=== PATIENT | female | born 1955 | race Caucasian/White ===

== ENCOUNTER → 2020-05-22 13:26 | Outpatient (CLI) | payer MEDICARE, SELFPAY ==
--- NOTE | ~2020-05-22 | MM_ITS ---
EXAMINATION: MM screening [facility] BI w ravi HISTORY: Screening mammogram TECHNIQUE: Craniocaudal and mediolateral oblique 3-D tomosynthesis images were obtained and synthetic 2-D images were generated. CAD analysis was submitted and interpreted. COMPARISON: 09/18/2018, 06/20/2017, 04/13/2015 BREAST PARENCHYMAL COMPOSITION: The breasts are almost entirely fatty. FINDINGS: There is no evidence of suspicious mass, calcification, or architectural distortion to sugg est malignancy in either breast. There has been no suspicious interval change. IMPRESSION: 1. No mammographic evidence of malignancy. 2. Recommend routine screening mammography in one year. BI-RADS Category 1: Negative Reviewed, dictated and finalized at location A. BOAT
--- NOTE | ~2020-05-22 | DEXA_ITS ---
Bone Density Report Name: Smiley Parsons Age: 64 Sex: Female Ethnicity: White Date of : 1955 Indication: postmenopausal; screening for osteoporosis; Referring Provider: Mert, Ronna Felder Study: Bone densitometry was performed. Exam Date: May 22, 2020 Accession number: [id number] Bone Density: Region BMD T-score Z-score Classification AP Spine (L1-L4) 0.997 -0.5 1.4 Normal Femoral Neck (Left) 0.615 -2.1 -0.5 Osteopenia Total Hip (Left) 0.827 -0.9 0.4 Normal Femoral Neck (Right) 0.608 -2.2 -0.6 Osteopenia Total Hip (Right) 0.777 -1.4 0.0 Osteopenia Total Hip Mean 0.802 -1.2 0.2 Osteopenia World Health Organization criteria for BMD impression classify patients as: Normal (T-score at or above -1.0), Osteopenia (T-score between -1.0 and -2.5), or Osteoporosis (T-score at or below -2.5). 10-year Fracture Risk(1): Major Osteoporotic Fracture 11% Hip Fracture 1.8% Reported Risk Factors: [place] (), Neck BMD=0.608, BMI=36.1 (1) FRAX(R) Version 3.08. Fracture probability calculated for an untreated patient. Fracture probability may be lower if the patient has received treatment. Previous Exams: Region Exam Age BMD T-score BMD Change BMD Change Date g/cm2 vs Baseline vs Previous AP Spine(L1-L4) 05/22/2020 64 0.997 -0.5 -0.225 0.005 06/20/2017 61 0.991 -0.5 -0.231 0.000 04/13/2015 59 0.991 -0.5 -0.231 -0.070* 01/11/2013 57 1.061 0.1 -0.161 -0.017 01/17/2011 55 1.079 0.3 -0.143 -0.013 09/28/2007 51 1.092 0.4 -0.130 -0.130 02/27/2004 48 1.222 1.6 Total Hip(Left) 05/22/2020 64 0.827 -0.9 -0.169 0.012 06/20/2017 61 0.814 -1.0 -0.182 0.016 04/13/2015 59 0.798 -1.2 -0.198 -0.047* 01/11/2013 57 0.845 -0.8 -0.151 -0.040* 01/17/2011 55 0.885 -0.5 -0.111 -0.004 09/28/2007 51 0.889 -0.4 -0.107 -0.107 02/27/2004 48 0.996 0.4 Total Hip(Right) 05/22/2020 64 0.777 -1.4 -0.214 -0.037 06/20/2017 61 0.814 -1.0 -0.177 -0.015 04/13/2015 59 0.829 -0.9 -0.161 -0.056* 01/11/2013 57 0.886 -0.5 -0.105 -0.013 01/17/2011 55 0.899 -0.4 -0.092 -0.025 09/28/2007 51 0.924 -0.1 -0.067 -0.067 02/27/2004 48 0.991 0.4 *Denotes significance at
== END ==
PROVIDERS: PCP Family Medicine Sports Medicine; Visit Provider Nurse Practitioner Obstetrics & Gynecology
DX: Z12.31 Encounter for screening mammogram for malignant neoplasm of breast (principal); Z78.0 Asymptomatic menopausal state; M85.852 Other specified disorders of bone density and structure, left thigh; M85.851 Other specified disorders of bone density and structure, right thigh
CPT/HCPCS: 77063; 77067; 77080

== ENCOUNTER 2021-06-29 09:19 | Emergency (ER) | payer MEDICARE, SELFPAY ==
--- NOTE | ~2021-06-29 | CT_ITS ---
EXAMINATION: CT abdomen pelvis wo con EXAM DATE: 06/29/2021 10:27 INDICATION: Left flank pain, history of kidney stones. TECHNIQUE: Spiral CT of the abdomen and pelvis was performed without contrast. Axial, coronal and sag ittal images were reviewed. The dose-length product (DLP) for this examination was 1206.06 mGy-cm. The exposure was tailored according to patient size (auto mA exposure control), and iterative reconst ruction (ASIR) was used as additional dose reduction technique. Comparison is made to prior examinati on from 02/04/2018. FINDINGS: There is punctate, 2 mm stone in the distal aspect left ureter indicated on axial image 161 , about 3 cm from the ureterovesicular junction. Minimal left hydronephrosis. There are bilateral hyp erdense renal lesions most likely hemorrhagic cysts. Several other left calyceal stones, measuring up to 5 mm. The uterus is unremarkable. The bladder is unremarkable. The liver, spleen, adrenal gla nds and pancreas are unremarkable. There are cholecystectomy clips. There is no retroperitoneal or pelvic lymphadenopathy. There is mild scattered arteriosclerotic disease. The appendix is normal. There is mild to moderate sigmoid diverticulosis. There may be mild adjacent fat stranding, uncomplicated diverticulitis. The stomach and small bowel are unremarkable. There is expected amount of colonic stool. No free intraperitoneal gas. The heart is normal in size. Ther e are no pericardial or pleural effusions. The lung bases are unremarkable. There are no osteoblast ic or osteolytic lesions identified. IMPRESSION: 1. Punctate, 2 mm distal left ureteral stone. Minimal hydronephrosis. 2. Mild to moderate sigmoid diverticulosis with possible mild uncomplicated acute diverticulitis. 3. Left nephrolithiasis. Reviewed, dictated and finalized at location A. S ACCOUNT REPRESENTATIVE IMPRESSION: 1. Punctate, 2 mm distal left ureteral stone. Minimal hydronephrosis. 2. Mild to moderate sigmoid diverticulosis with possible mild uncomplicated ac josé luis diverticulitis. 3. Left nephrolithiasis.
[2021-06-29 09:24] VITALS: BP 157/91; PULSE 82; RESP 14; TEMP 36.5; O2SAT 97
[2021-06-29 10:01] LABS: Basophils Percent Auto 0.6 % (0.2-1.2); Eosinophils Absolute Auto 0.1 K/mm3 (0-0.3); Eosinophils Percent Auto 1.6 % (0-4.4); Hematocrit 42.2 % (37.0-47.0); Hemoglobin 13.5 g/dL (12.0-15.0); Immature Granulocyte Absolute 0.01 K/mm3 (0.00-0.031); Immature Granulocyte Percent A 0.2 % (0-0.5); Lymphocytes Absolute Auto 1.39 K/mm3 (0.9-3.2); Mean Corpuscular Hemoglobin 28.4 pg (26-34); Mean Corpuscular Volume 88.7 fl (80-100); Mean Platelet Volume 9.4 fl (7.4-10.4); Monocytes Absolute Auto 0.3 K/mm3 (0.1-0.6); Monocytes Percent Auto 6.2 % (2.6-8.5); Neutrophils Absolute Auto 3.3 K/mm3 (1.3-6.7); Neutrophils Percent Auto 64.4 % (45.5-73.1); Platelet Count Result 302 k/mm3 (150-375); Red Blood Count 4.76 M/mm3 (4.2-5.4); White Blood Count 5.2 K/mm3 (4.5-10.0)
[2021-06-29 10:10] LABS: Add Urine Microscopic? YES; Appearance Urine Cloudy (Clear); Bilirubin Urine Negative (Negative); Blood Urine 3+ (Negative); Color Urine Yellow (Yellow); Glucose Urine UA Negative (Negative); Ketones Urine Negative (Negative); Leukocyte Esterase Ur Negative LEU/UL (Negative); Mucus Urine Few /lpf; Nitrate Urine Negative (Negative); Protein Urine 1+ mg/dL (Negative); RBC Urine >75 /hpf (0-2); Specific Grav Ur 1.019 (1.001-1.035); Squamous Epithelial Cell Urine Few /hpf (Few); Urobilinogen Urine Negative mg/dL (<2.0)
[2021-06-29 10:13] LABS: Alanine Aminotransferase 38 U/L (4-35); Albumin Level 4.2 g/dL (3.5-5.1); Alkaline Phosphatase 57 U/L (38-126); Anion Gap 6 mmol/L (8-16); Aspartate Amino Transferase 38 U/L (14-36); Bilirubin,Total 0.4 mg/dL (0.2-1.3); Blood Urea Nitrogen 20 mg/dL (7-17); Calcium 9.8 mg/dL (8.4-10.2); Carbon Dioxide 27 mmol/L (22-30); Chloride 103 mmol/L (98-107); Estimated CRCL calculation 56 ml/min; Estimated Glomerular Filt Rate > 60; Glucose 151 mg/dL (65-110); Potassium 3.9 mmol/L (3.4-5.0); Sodium 136 mmol/L (137-145)
--- NOTE | 2021-06-29 10:13 | ED.ABDPAIN ---
HPI - Abdominal Pain General Chief Complaint: Back Pain/Injury Stated Complaint: Kidney stone Time Seen by Provider: 06/29/21 10:13 Source: patient Mode of arrival: ambulatory Limitations: no limitations History of Present Illness HPI narrative: Patient is a 65-year-old female complaining of left flank pain, 9 out of 10, sharp, radiating to groin, accompanied by nausea and dysuria that started today. Patient states that she has a history of kidney stones. Patient denies any chest pain, shortness of breath, vomiting, diarrhea, fever or chills. Related Data Home Medications Medication Instructions Recorded Confirmed fenofibrate mg 06/29/21 lisinopril-hydrochlorothiazide tablet 06/29/21 omeprazole 06/29/21 valacyclovir 06/29/21 Allergies Allergy/AdvReac Type Severity Reaction Status Date / Time telithromycin Allergy Unknown Verified 03/30/17 14:07 Review of Systems Review of Systems: All systems reviewed & are unremarkable except as noted in HPI and below Constitutional: Constitutional: Denies body ache(s), Denies chills, Denies excessive sweating, Denies fatigue, Denies fever(s), Denies headache(s), Denies lethargy, Denies malaise, Denies weakness and Denies weight loss Eyes: Eyes: Denies blurry vision, Denies change in vision and Denies loss of vision ENT: Denies dizziness, Denies ear discharge, Denies headache(s), Denies lip swelling, Denies epistaxis, Denies nasal congestion, Denies neck pain, Denies throat swelling and Denies tongue swelling Cardiovascular: Cardiovascular: Denies chest pain, Denies chest pain at rest, Denies chest pain with activity, Denies diaphoresis, Denies rapid heart rate, Denies edema, Denies irregular heart rhythm, Denies lightheadedness, Denies palpitations, Denies dyspnea and Denies dyspnea on exertion Respiratory: Respiratory: Denies chest congestion, Denies cough, Denies hemoptysis, Denies dyspnea and Denies dyspnea on exertion Gastrointestinal: Gastrointestinal: Denies abdominal pain, Denies melena, Denies hematochezia, Denies diarrhea, Denies vomiting and Denies hematemesis Musculoskeletal: Musculoskeletal: Denies abnormal gait, Denies deformity, Denies joint swelling, Denies limited range of motion, Denies neck pain and Denies numbness Neurologic: Denies Abnormal speech present, Denies abnormal gait, Denies confusion, Denies dizziness, Denies headache(s), Denies focal weakness, Denies loss of vision, Denies numbness, Denies Other visual disturbances, Denies Sensory deficit (Neuro) and Denies weakness Psychiatric: Psychiatric: Denies confusion, Denies depression, Denies auditory hallucinations, Denies homicidal ideation and Denies suicidal ideation Endocrine: Endocrine: Denies cold intolerance, Denies excessive sweating, Denies fatigue, Denies heat intolerance and Denies palpitations Hematologic/Lymphatic: Hematologic/Lymphatic: Denies easy bleeding and Denies easy bruising Allergic/Immunologic: Allergic/Immunologic: Denies lip swelling, Denies throat swelling and Denies tongue swelling [facility] Family History Family History (Updated 03/30/17 @ 14:08 by DOCTOR UNKNOWN) Mother Carcinoma of colon Father Family history of congestive heart failure Other Hypertension Social History Social History Smoking status: Never smoker Alcohol intake: never Comments Past medical history: Hypertension, hyperlipidemia, kidney stones Social history: Non-smoker no EtOH or drug use Exam Const: General: cooperative, healthy appearing, comfortable, no acute distress, well developed, alert and awake; No confusion Orientation/consciousness: oriented to person, oriented to place, oriented to time, patient oriented x3 and No confusion Limitations: no limitations HENMT: Head: normal to inspection, normocephalic and atraumatic Ears: hearing grossly normal bilaterally, TM normal on the right and TM normal on the left General nose exam: Normal external nose present, Normal nares prese
[2021-06-29 10:46] LABS: Lipase 263 U/L (23-300)
[2021-06-29] MEDS: SODIUM CHLORIDE 0.9% IV 1,000 ML 999 ML IV CONT (10:47)
[2021-06-29] MEDS: TAMSULOSIN HCL 0.4 MG CAPSULE PO (13:07)
[2021-06-29 13:14] VITALS: BP 138/92; PULSE 70; RESP 18; O2SAT 96
== END 2021-06-29 13:21 | disposition home or self-care (01) ==
PROVIDERS: Emergency Medicine; Emergency Provider Emergency Medicine; PCP Family Medicine Sports Medicine
DX: N13.9 Obstructive and reflux uropathy, unspecified (principal); K57.92 Diverticulitis of intestine, part unspecified, without perforation or abscess without bleeding; I10 Essential (primary) hypertension; E78.5 Hyperlipidemia, unspecified; Z87.442 Personal history of urinary calculi
CPT/HCPCS: 36415; 74176; 80053; 81001; 83690; 85025; 96360; 99284; A9270; J7030

== ENCOUNTER 2022-07-09 17:01 | Inpatient (IN) | payer MEDICARE, SELFPAY ==
--- NOTE | ~2022-07-09 | CT_ITS ---
EXAMINATION: CT guide absc cath placement DATE: 07/11/2022 13:02 INDICATION: Perisigmoid abscess. TECHNIQUE: The procedure including the risks, benefits, and alternatives was discussed with the patie nt. Risks discussed included bleeding and infection. The patient understood the risks and benefits an d agreed to proceed. The skin overlying the buttocks was prepped and draped in usual sterile fashion. Anesthetic was administered with 1% lidocaine subcutaneously. Moderate sedation was achieved with 1 mg Versed IV and 50 mcg fentanyl IV. An 18 gauge trochar needle was inserted into the perisigmoid ab scess with CT guidance. The needle was exchanged over a wire for 6 [place]an, 8 [place]an, and 9 [place] dil ators and then for an 8.5 [place] pigtail catheter. The catheter was stitched to the skin, and a steri le dressing was applied. The mA was adjusted according to patient size. Iterative reconstruction tech nique was employed. The dose-length product was 188.27 mGy-cm. There were no immediate complications. FINDINGS: CT images demonstrate the catheter within the perisigmoid abscess. 10 mL fluid was aspirate d for testing. IMPRESSION: 1. Successful CT-guided perisigmoid abscess drainage. 2. 10 mL opaque, cannon fluid was sent for aerobic and anaerobic cultures. Reviewed, dictated and finalized at location A. LE LOOM SETTER
--- NOTE | ~2022-07-09 | CT_ITS ---
EXAMINATION: CT abdomen pelvis w con DATE: 07/09/2022 18:38 INDICATION: Left sided abd pain, leukocytosis TECHNIQUE: Computed tomography (CT) of the abdomen and pelvis was performed with 100 mL Omnipaque-350 intravenous contrast. Automated exposure control and iterative reconstruction technique were employe d. The dose-length product was 1161.33 mGy-cm. COMPARISON: 06/29/2021. FINDINGS: Lower thorax: Bilateral dependent atelectasis/scar. Liver: Diffuse fatty infiltration. Biliary/Gallbladder: Gallbladder is absent. No bile duct dilation. Pancreas: No mass or duct dilation. Spleen: Normal. Adrenals:No mass. Kidneys: Hemorrhagic left midpole cyst. Simple left upper and lower pole cysts. Multiple bilateral hy podensities, too small to characterize but most likely represent cysts. Multiple left nonobstructing renal calculi. Moderate bilateral perinephric stranding. GI tract: Mild distal esophageal and gastric wall edema. No small or large bowel dilation. Normal shine endix. Short segment wall thickening in the distal sigmoid, with adjacent inflammatory stranding and a 5.9 x 6.6 x 5.1 cm gas and fluid collection in the pouch of Dionicio, with early rim enhancement. Mesentery/Peritoneum: No mass or free air. Retroperitoneum: No mass. Pelvis: Pelvic organs are within normal limits. Soft Tissues: Soft tissues and body wall unremarkable. Bones: No acute osseous finding. IMPRESSION: Complicated sigmoid diverticulitis with a 6.6 cm pericolonic contained perforation/early abscess in t he deep pelvis Reviewed, dictated and finalized at location K. USION SUPERVISOR IMPRESSION: Complicated sigmoid diverticulitis with a 6.6 cm pericolonic contained perforat ion/early abscess in the deep pelvis
[2022-07-09 17:03] VITALS: BP 154/85; PULSE 121; RESP 17; TEMP 37.2; O2SAT 96
[2022-07-09 17:24] LABS: Basophils Percent Auto 0.2 % (0.2-1.2); Hematocrit 43.6 % (37.0-47.0); Hemoglobin 14.4 g/dL (12.0-15.0); Immature Granulocyte Percent A 0.6 % (0-0.5); Lymphocytes Percent Auto 7.7 % (18.3-44.2); Mean Corpuscular Volume 84.8 fl (80-100); Mean Platelet Volume 9.5 fl (7.4-10.4); Monocytes Absolute Auto 0.6 K/mm3 (0.1-0.6); Monocytes Percent Auto 3.6 % (2.6-8.5); Neutrophils Absolute Auto 14.9 K/mm3 (1.3-6.7); Neutrophils Percent Auto 87.9 % (45.5-73.1); Platelet Count Result 348 k/mm3 (150-375); Red Blood Count 5.14 M/mm3 (4.2-5.4); Red Cell Distribution Width 14.2 % (11.5-14.5); White Blood Count 16.9 K/mm3 (4.5-10.0)
[2022-07-09 17:38] LABS: Alanine Aminotransferase 35 U/L (6-35); Albumin Level 4.3 g/dL (3.5-5.1); Alkaline Phosphatase 53 U/L (38-126); Anion Gap 7 mmol/L (8-16); Aspartate Amino Transferase 31 U/L (14-36); Bilirubin,Total 1.2 mg/dL (0.2-1.3); Blood Urea Nitrogen 13 mg/dL (7-17); Calcium 9.4 mg/dL (8.4-10.2); Carbon Dioxide 26 mmol/L (22-30); Chloride 103 mmol/L (98-107); Estimated CRCL calculation 64 ml/min; Estimated Glomerular Filt Rate > 60; Glucose 155 mg/dL (65-110); Lipase 75 U/L (23-300); Potassium 3.7 mmol/L (3.4-5.0); Sodium 136 mmol/L (137-145)
[2022-07-09 18:06] LABS: Add Urine Microscopic? YES; Appearance Urine Clear (Clear); Bilirubin Urine 1+ (Negative); Blood Urine Negative (Negative); Color Urine Yellow (Yellow); Glucose Urine UA Negative (Negative); Ketones Urine Negative (Negative); Leukocyte Esterase Ur Negative LEU/UL (Negative); Nitrate Urine Negative (Negative); Protein Urine Negative (Negative); Specific Grav Ur 1.025 (1.001-1.035); Urobilinogen Urine 0.2 mg/dL (<2.0)
[2022-07-09 18:14] LABS: Mucus Urine Rare /lpf; RBC Urine 0-2 /hpf (0-2); Squamous Epithelial Cell Urine Occasional /hpf (Few); WBC Urine 0-3 /hpf
--- NOTE | 2022-07-09 19:19 | ED.ABDPAIN ---
HPI - Abdominal Pain General Chief Complaint: Abdominal Pain Stated Complaint: ABD PAIN Time Seen by Provider: 07/09/22 18:20 History of Present Illness HPI narrative: 66-year-old female with a hx of diverticulitis and HTN presents to the emergency room for gradual onset of lower abdominal pain. Patient states on Monday she was seen at her PCPs office for evaluation of LLQ pain. Was given x2 ABX by her PCP for suspected diverticulitis. Began experiencing worsening RLQ/LLQ abdominal pain associated with nausea and vomiting yesterday. Reports discontinuing the antibiotics yesterday when she began vomiting. Related Data Home Medications Medication Instructions Recorded Confirmed fenofibrate 160 mg tablet mg 06/29/21 lisinopril 20 tablet 06/29/21 mg-hydrochlorothiazide 12.5 mg tablet omeprazole 40 mg capsule,delayed 06/29/21 release valacyclovir 1 gram tablet 06/29/21 Allergies Allergy/AdvReac Type Severity Reaction Status Date / Time telithromycin Allergy Unknown Unknown Verified 07/09/22 17:02 Review of Systems Review of Systems: CONSTITUTIONAL: Denies fever, chills, or sweats. EYES: Denies visual changes, redness, or discharge. ENT: Denies rhinorrhea, congestion, sore throat, or otalgia. CARDIOVASCULAR: Denies chest pain, palpitations, or edema. RESPIRATORY: Denies cough or dyspnea. GASTROINTESTINAL: Reports lower abdominal pain, nausea, vomiting GENITOURINARY: Denies dysuria or hematuria. SKIN: Denies rash or itching. MUSCULOSKELETAL: Denies back pain, joint pain, or myalgia. NEUROLOGIC: Denies headache, numbness, dizziness, or weakness. PSYCHIATRIC: Denies anxiety or depression. PMFSH Family History Family History Mother Carcinoma of colon Father Family history of congestive heart failure Other Hypertension Social History Social History Smoking status: Never smoker Alcohol intake: never Exam Narrative: GENERAL: Ill-appearing, well-nourished, no physical limitations, and uncomfortable HEAD: Normocephalic, atraumatic. EYES: Conjunctivae normal, PERRLA and EOMI. CHEST: Clear to auscultation. No respiratory distress. No wheezes rales or rhonchi. HEART: Regular rate and rhythm. No murmur heard. Normal peripheral pulses. ABDOMEN: Soft, lower abdominal tenderness, nondistended, normal active bowel sounds. BACK: No CVA tenderness EXTREMITIES: Normal range of motion. No edema. No clubbing or cyanosis SKIN: Warm, dry, no rash. No noted wounds NEURO: No focal deficits. Alert and oriented x3. MAEW. CN's II-XI intact bilaterally, normal gait PSYCH: Cooperative. Normal mood and affect. Course Vital Signs Vital signs: Vital Signs Temperature 37.2 C 07/09/22 17:03 Pulse Rate 121 H 07/09/22 17:03 Respiratory Rate 17 07/09/22 17:03 Blood Pressure 154/85 H 07/09/22 17:03 Pulse Oximetry 96 07/09/22 17:03 Temperature 36.6 C 07/09/22 21:22 Pulse Rate 89 07/09/22 21:22 Respiratory Rate 20 07/09/22 21:22 Blood Pressure 128/69 07/09/22 21:22 Pulse Oximetry 97 07/09/22 21:22 MDM - Abdominal Pain Lab Data 07/09/22 17:10 07/09/22 17:10 Labs: Lab Results 07/09/22 07/09/22 07/09/22 Range/Units 17:10 17:10 17:58 WBC 16.9 H (4.5-10.0) K/mm3 RBC 5.14 (4.2-5.4) M/mm3 Hgb 14.4 (12.0-15.0) g/dL Hct 43.6 (37.0-47.0) % MCV 84.8 (80-100) fl MCH 28.0 (26-34) pg MCHC 33.0 (32-36) g/dl RDW 14.2 (11.5-14.5) % Plt Count 348 (150-375) k/mm3 MPV 9.5 (7.4-10.4) fl Immature Gran % (Auto) 0.6 H (0-0.5) % Neut % (Auto) 87.9 H (45.5-73.1) % Lymph % (Auto) 7.7 L (18.3-44.2) % Yates % (Auto) 3.6 (2.6-8.5) % Eos % (Auto) 0.0 (0-4.4) % Baso % (Auto) 0.2 (0.2-1.2) % Lymph # (Auto) 1.30 (0.9-3.2) K/mm3 Yates # (Auto) 0.6 (0.1-0.6) K/mm3 Eos
[2022-07-09] MEDS: ONDANSETRON INJ 4 MG/2 ML VIAL IV PUSH (19:21)
[2022-07-09] MEDS: SODIUM CHLORIDE 0.9% IV 1,000 ML 999 ML IV CONT (19:22)
[2022-07-09 20:21] VITALS: PULSE 88; RESP 14; O2SAT 94
[2022-07-09 20:31] LABS: Influenza A QL RT-PCR Negative (Negative); Influenza B QL RT-PCR Negative (Negative); RSV RNA, RT-PCR Negative (Negative); SARS-CoV-2 RNA PCR Negative
[2022-07-09 20:50] VITALS: BP 120/66
[2022-07-09] MEDS: SODIUM CHLORIDE 0.9% IV 1,000 ML 125 ML IV CONT (21:15)
--- NOTE | 2022-07-09 21:19 | ADMGEN ---
This patient, Smiley Parsons, was admitted to Medical Room 249-01. Patient/family oriented to hospital policies and general routines including ID bracelet, bed and alarms, visiting hours, pain management, procedures, bathroom and other care routines, personal items, smoking policy, room service/diet, and visiting hours. Information on how to activate the Rapid Response Team has been discussed. Patient/Family are encouraged to report perceived risks to care and to ask questions if they do not understand what they are told or what they should do.
[2022-07-09 21:22] VITALS: BP 128/69; PULSE 89; RESP 20; TEMP 36.6; O2SAT 97; BMI 36.3
--- NOTE | 2022-07-09 21:49 | PM.IMHP ---
H&P: HPI History of Present Illness Date/Time: 07/09/22 21:49 Chief Complaint: Abdominal pain Narrative: 66-year-old female with past medical history of GERD, hypertriglyceridemia, essential hypertension and diverticulosis who presented to the ER due to abdominal pain. Patient reported that she had left lower abdominal pain that started on the 28 of June. The pain was similar to her prior episodes of diverticulitis. She has had 1 prior episode of diverticulitis 06/2021. She went to her primary care physician's office on Monday (the ) and received prescriptions for Cipro and Flagyl. She reported that the pain started to radiate from the left lower quadrant to the right lower quadrant and then was involving the entire abdomen. The pain acutely worsened on Monday. It was accompanied by cold chills and loose stools. She denies any hematochezia or melena. She has had no appetite for 3 days. She was unable to take her antibiotics yesterday due to her nausea vomiting. She denies any dysuria or hematuria. She denies any hematochezia or melena. Review of Systems Review of Systems: 12 systems were reviewed with pertinent positives and negatives per HPI. Except as documented in the HPI, all other systems were reviewed and are negative. [facility] Past Medical History Medical History (Updated 07/09/22 @ 22:06 by Micaela Teague DO) Claustrophobia Diverticulitis 2022 Essential hypertension GERD (gastroesophageal reflux disease) Hypertriglyceridemia Obesity (BMI 30-39.9) Surgical History Surgical History (Updated 07/09/22 @ 22:05 by Micaela Teague DO) History of Achilles tendon repair History of laparoscopic cholecystectomy (04/2017) Status post cystoscopy with ureteral stent placement Left 08/2013, right 01/2018; Dr. Gregorio Family History Family History Mother Carcinoma of colon With metastases to the brain Father CHF (congestive heart failure) Dementia Sibling Hypothyroidism Other Hypertension Social History Social History (Updated 07/10/22 @ 08:56 by Micaela Teague DO) Social History: Patient was for 45 years but has been since 2019. Her of leukemia. She is a lifelong nonsmoker intense not drink any significant amount of alcohol. 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 She has 2 daughters who she does admit as her surrogate decision makers. Code status: Full code Smoking status: Never smoker Alcohol intake: never Substance use: never Lack of Transportation: No Lack of Food: Never True Current Housing: I Have Housing Concerned About Future Housing: No Difficulty Paying Gas/Electric Bills: No Difficulty Paying for Meds: No Currently Unemployed: No Education: Associate Degree Difficulty w/ Childcare or Family Care: No Spiritual care concerns: No Meds Home Medications and Allergies Home Medications Medication Instructions Recorded Confirmed Type fenofibrate 160 mg tablet 160 mg PO DAILY 06/29/21 07/09/22 History lisinopril 20 1 tablet PO DAILY 06/29/21 07/09/22 History mg-hydrochlorothiazide 12.5 mg tablet omeprazole 40 mg capsule,delayed 40 mg PO DAILY 06/29/21 07/09/22 History release ciprofloxacin HCl 500 mg tablet 500 mg PO DAILY 07/09/22 07/09/22 History metronidazole 500 mg tablet 500 mg PO DAILY 07/09/22 07/09/22 History Allergies Allergy/AdvReac Type Severity Reaction Status Date / Time telithromycin Allergy Unknown Unknown Verified 07/09/22 17:02 Vital Signs Vital Signs - 24 hr 07/09/22 17:03 07/09/22 20:21 07/09/22 20:50 Temperature 99 F Pulse Rate 121 H 88 Respiratory Rate 17 14 Blood Pressure 154/85 H 120/66 Pulse Oximetry 96 94 Oxygen Delivery 07/09/22 21:22 07/09/22 21:45 Temperature 97.9 F Pulse Rate 89 Respiratory Rate 20 Blood Pressure 128/69 Pulse Oximetry 97 Oxygen Delivery Room Air
[2022-07-09 23:40] VITALS: BP 119/66; PULSE 87; RESP 16; TEMP 36.6; O2SAT 94
--- NOTE | 2022-07-10 00:06 | PC.NURSE ---
SPOKE TO DR HARDIN PER DR VILLAFUERTE REQUEST TO UPDATE HIM ON PT CONDITION. HE SAID HE WOULD BE IN EARLY TO ASSESS PT. PT LOOKS INCREASINGLY ILL, DUSKY, DIAPHORETIC, EXPERIENCING REBOUND TENDERNESS, INVOLUNTARY GUARDING, AND DISTENDED. PT BOWEL SOUNDS ARE STILL PRESENT. PT REFUSING MORPHINE BUT CONTINUES TO BE IN PAIN. GAVE ZOFRAN FOR NAUSEA.
[2022-07-10] MEDS: ONDANSETRON INJ 4 MG/2 ML VIAL IV PUSH ×4 (03:32→15:54)
[2022-07-10 04:00] VITALS: BP 108/56; PULSE 82; RESP 16; TEMP 36.5; O2SAT 92
[2022-07-10 05:32] LABS: Hematocrit 37.9 % (37.0-47.0); Hemoglobin 12.1 g/dL (12.0-15.0); Mean Corpuscular HGB Conc 31.9 g/dl (32-36); Mean Corpuscular Hemoglobin 27.8 pg (26-34); Mean Corpuscular Volume 86.9 fl (80-100); Mean Platelet Volume 9.4 fl (7.4-10.4); Platelet Count Result 256 k/mm3 (150-375); Red Blood Count 4.36 M/mm3 (4.2-5.4); Red Cell Distribution Width 14.2 % (11.5-14.5); White Blood Count 13.1 K/mm3 (4.5-10.0)
[2022-07-10 05:46] LABS: Anion Gap 6 mmol/L (8-16); Blood Urea Nitrogen 14 mg/dL (7-17); Calcium 8.4 mg/dL (8.4-10.2); Carbon Dioxide 25 mmol/L (22-30); Chloride 106 mmol/L (98-107); Estimated CRCL calculation 59 ml/min; Estimated Glomerular Filt Rate > 60; Glucose 123 mg/dL (65-110); Potassium 3.5 mmol/L (3.4-5.0); Sodium 137 mmol/L (137-145)
[2022-07-10] MEDS: SODIUM CHLORIDE 0.9% IV 1,000 ML 125 ML IV CONT ×3 (06:06→22:31)
[2022-07-10 10:22] VITALS: BP 125/70; PULSE 98; RESP 18; TEMP 37; O2SAT 95
--- NOTE | 2022-07-10 10:41 | PM.CNGS ---
Assessment and Plan Assessment and plan (1) Diverticulitis of large intestine with perforation and abscess: Code(s): K57.20 - Diverticulitis of large intestine with perforation and abscess without bleeding Status: Acute Assessment and Plan: I have reviewed the CT and discussed the findings with the patient. She has evidence of complicated diverticulitis with a 6.6 cm abscess in the deep pelvis. If possible, this would be best treated with percutaneous drainage of the abscess to allow for source control and prevent requiring emergent surgery with ostomy placement. Currently her heart rate is normal and her white blood count is coming down which I discussed with patient that these are good signs that we can continue current treatment and plan for percutaneous drainage when Interventional Radiology is available. I discussed that if she begins showing worsening signs uncontrolled pain, tachycardia, hypotension, or worsening white blood count, will have to consider proceeding with emergent surgical intervention. Will continue Zosyn and NPO except ice chips at this time. After drain placement patient could possibly have liquids if she is continuing to show signs of improvement. (2) Sepsis: Code(s): A41.9 - Sepsis, unspecified organism Status: Acute Assessment and Plan: Elevated white blood count and tachycardia on presentation. White blood count already coming down and no more tachycardia since she was admitted. Patient also remains afebrile. (3) Essential hypertension: Code(s): I10 - Essential (primary) hypertension Status: Acute History of Present Illness Consult details Consult date: 07/10/22 Reason for consult: other (Perforated sigmoid diverticulitis) Requesting physician: Shahram Becker APRN Narrative: This is a 66-year-old woman who I am asked to see for perforated sigmoid diverticulitis with abscess. The patient presented to the emergency department last night complaining of generalized abdominal pain with nausea and vomiting. She has been experiencing pain and not feeling well for about 2 weeks. Her pain was mostly in the left lower quadrant at and she did have a fever 1 week ago. She saw her PCP on Monday and was placed on Cipro and Flagyl. Over the next several days she continued to have worsening pain and was also having some loose stool. She then began experiencing nausea and vomiting on Monday night. Her pain was severe yesterday therefore she came to the emergency department. CT abdomen and pelvis showed perforated sigmoid diverticulitis with a 6.6 cm abscess the deep pelvis. There were no other signs of free air throughout the remainder of the abdomen. Her white blood count was 16.9 and she was tachycardic on presentation to the emergency department. Since being admitted her pain is about the same but is being controlled with IV Tylenol alone. Her white blood count did come down to 13.1 and she has not been tachycardic since she initially presented in the emergency department. The patient did have 1 episode of uncomplicated diverticulitis about 1 year ago and was treated with oral antibiotics as an outpatient. She had a Cologuard test about 2 years ago which was normal. She denies any dysuria or pneumaturia. Review of Systems Review of Systems: All systems reviewed & are unremarkable except as noted in HPI and below Constitutional: Constitutional: Reports fever(s) (One week ago, none since) Eyes: Eyes: Denies change in vision ENT: Denies hearing loss, Denies neck pain and Denies sore throat Cardiovascular: Cardiovascular: Denies chest pain and Denies dyspnea Respiratory: Respiratory: Denies cough, Denies dyspnea and Denies wheezing Gastrointestinal: Gastrointestinal: Reports as per HPI Genitourinary: Genitourinary: Denies hematuria and Denies dysuria Musculoskeletal: Musculoskeletal: Denies arthralgias, Denies joint swelling and Denies neck pain Allergic/Immun
[2022-07-10] MEDS: MORPHINE SULFATE (*CRX) 4 MG/ML INJ 2 MG IV PUSH (11:13)
--- NOTE | 2022-07-10 13:31 | PM.IMPN ---
Progress Note: A&P Assessment and Plan (1) Diverticulitis of intestine with perforation and abscess: Qualifiers: Diverticulitis bleeding: without bleeding Diverticulitis site: large intestine Qualified Code(s): K57.20 - Diverticulitis of large intestine with perforation and abscess without bleeding Code(s): K57.80 - Diverticulitis of intestine, part unspecified, with perforation and abscess without bleeding Status: Deleted Assessment and Plan: Patient has diverticulitis with perforation and abscess measuring greater than 6 cm. The patient has been placed on empiric antibiotic therapy with Zosyn. Appreciate general surgery consultation. Percutaneous drainage has been recommended an IR is available to complete. Continue NPO diet at this time. Gentle IV fluids while NPO. Analgesics and antiemetics available as needed (2) Sepsis: Code(s): A41.9 - Sepsis, unspecified organism Status: Acute Assessment and Plan: Septic on presentation with leukocytosis and tachycardia. Source of infection as above. Patient is afebrile. Blood cultures pending. Continue IV fluids. (3) Essential hypertension: Code(s): I10 - Essential (primary) hypertension Status: Acute Assessment and Plan: Blood pressures are stable. No hypotension. Home lisinopril-hydrochlorothiazide on hold while NPO (4) GERD (gastroesophageal reflux disease): Code(s): K21.9 - Gastro-esophageal reflux disease without esophagitis Status: Chronic Assessment and Plan: No acute issues. IV Protonix while NPO Subjective Date/time seen: 07/10/22 13:31 Interval history: Date of service: 07/10/2022 Smiley Parsons is a 66-year-old female with a history of diverticulitis, hypertension, GERD, hypertriglyceridemia who is seen in follow-up for diverticulitis with abscess. Patient states that her pain is improved today. Currently rates it as a 7/10 describes pain ?all over? her abdomen, however is mostly concentrated on the left side. She had several episodes of emesis 2 days ago but no emesis today. Nausea has improved. She denies fever or chills. She had diarrhea 2 days ago but no bowel movements since then. Denies any blood in her stool. Denies shortness of breath, cough, chest pain, dizziness, lightheadedness, weakness, dysuria Review of Systems Review of Systems: All systems reviewed & are unremarkable except as noted in HPI and below Exam Narrative: General: Well-nourished, well-appearing 66-year-old female, sitting up bed, comfortable, NARD Neuro: awake, alert and oriented x4, speech clear, no focal neuro deficits noted HEENMT: normocephalic, atraumatic, EOMI, sclerae anicteric Respiratory: clear to auscultation bilaterally, nonlabored breathing Cardio: regular rate, regular rhythm with S1-S2 Abdomen: nondistended, normoactive bowel sounds, soft, diffusely tender to palpation Extremities: no edema, erythema, or tenderness to palpation, DP pulses 2+ bilaterally Skin: no rashes or lesions, warm and dry Psych: appropriate mood and affect, judgment and insight intact Objective Data Vital Signs Vital Signs: Vital Signs - 24 hr 07/09/22 17:03 07/09/22 20:21 07/09/22 20:50 Temperature 99 F Pulse Rate 121 H 88 Respiratory Rate 17 14 Blood Pressure 154/85 H 120/66 Pulse Oximetry 96 94 Oxygen Delivery 07/09/22 21:22 07/09/22 21:45 07/09/22 23:40 Temperature 97.9 F 98 F Pulse Rate 89 87 Respiratory Rate 20 16 Blood Pressure 128/69 119/66 Pulse Oximetry 97 94 Oxygen Delivery Room Air 07/10/22 04:00 07/10/22 10:22 Temperature 97.7 F 98.6 F Pulse Rate 82 98 Respiratory Rate 16 18 Blood Pressure 108/56 L 125/70 Pulse Oximetry 92 95 Oxygen Delivery Intake/Output Intake/Output: Intake & Output 07/07/22 07/08/22 07/09/22 07/10/22 23:59 23:59 23:59 23:59 Intake Total 1250 1300 Output Total 300 Balance 1250 1000
[2022-07-10] MEDS: PANTOPRAZOLE SODIUM IV 40 MG VIAL IV PUSH (13:43)
[2022-07-10 13:48] VITALS: BP 118/66; PULSE 89; RESP 18; TEMP 36.4; O2SAT 94
[2022-07-10 19:00] VITALS: BP 147/75; PULSE 88; RESP 16; TEMP 36.4; O2SAT 98
[2022-07-10 20:00] VITALS: BP 114/73; PULSE 90; RESP 16; TEMP 36.8; O2SAT 94
[2022-07-11] VITALS (15 sets, daily range): BP systolic 114–137; BP diastolic 59–76; PULSE 80–93; RESP 16–18; TEMP 36.5–37.1; O2SAT 93–99
[2022-07-11] MEDS: ONDANSETRON INJ 4 MG/2 ML VIAL IV PUSH ×3 (03:30→19:57)
[2022-07-11 05:43] LABS: Hematocrit 36.1 % (37.0-47.0); Hemoglobin 11.4 g/dL (12.0-15.0); Mean Corpuscular HGB Conc 31.6 g/dl (32-36); Mean Corpuscular Hemoglobin 27.6 pg (26-34); Mean Corpuscular Volume 87.4 fl (80-100); Mean Platelet Volume 9.5 fl (7.4-10.4); Platelet Count Result 253 k/mm3 (150-375); Red Blood Count 4.13 M/mm3 (4.2-5.4); Red Cell Distribution Width 14.2 % (11.5-14.5)
[2022-07-11 05:59] LABS: Anion Gap 8 mmol/L (8-16); Blood Urea Nitrogen 10 mg/dL (7-17); Calcium 8.3 mg/dL (8.4-10.2); Carbon Dioxide 22 mmol/L (22-30); Chloride 110 mmol/L (98-107); Estimated CRCL calculation 66 ml/min; Estimated Glomerular Filt Rate > 60; Glucose 81 mg/dL (65-110); Potassium 3.7 mmol/L (3.4-5.0); Sodium 140 mmol/L (137-145)
[2022-07-11 06:00] LABS: INR 1.2; Prothrombin Time 14.8 Seconds (11.1-14.7)
[2022-07-11 06:01] LABS: Partial Thromboplastin Time 33.4 SECONDS (22.3-36.8)
[2022-07-11 06:10] LABS: CRP 25.6 mg/dL (<1.0)
[2022-07-11] MEDS: PANTOPRAZOLE SODIUM IV 40 MG VIAL IV PUSH (08:33)
[2022-07-11] MEDS: SODIUM CHLORIDE 0.9% IV 1,000 ML 125 ML IV CONT (08:33)
--- NOTE | 2022-07-11 11:35 | PM.PNGS ---
Progress Note: A&P Assessment and Plan (1) Diverticulitis of large intestine with perforation and abscess: Code(s): K57.20 - Diverticulitis of large intestine with perforation and abscess without bleeding Status: Acute Assessment and Plan: Clinically improving. WBC down to 12,000 today. Percutaneous drain placement ordered for today in IR. Will keep NPO for procedure. Could consider clear liquids this afternoon once drain is placed. Continue IV Zosyn. Repeat labs tomorrow (2) Sepsis: Code(s): A41.9 - Sepsis, unspecified organism Status: Acute Assessment and Plan: WBC count continues to improve. She is afebrile. Blood cx NGTD. Continue IV antibiotics and management mentioned above. (3) Essential hypertension: Code(s): I10 - Essential (primary) hypertension Status: Acute Plan I have discussed the patient's case and plan of care with Dr. Lombardo. Subjective Subjective Date/Time Seen: 07/11/22 09:35 Patient reports: no new complaints, feels better, pain is less, flatus, no bowel movement and afebrile Interval history: Chart reviewed. Patient reports her abdominal pain has improved significantly since admission. She denies even having any abdominal pain at the time of my exam. Denies any nausea, but still feels slightly bloated. Review of Systems Review of Systems: All systems reviewed & are unremarkable except as noted in HPI and below Exam Const: General: alert; No acute distress Orientation/consciousness: patient oriented x3 GI: Inspection: non-distended GI Palp: Yes Soft to palpation, Yes Tenderness to palpation present (GI) (LLQ, suprapubic), No Guarding due to palpation present (GI) and No Rebound tenderness present Auscultation: normal bowel sounds Objective Data Vital Signs Vital Signs: Vital Signs - 24 hr 07/10/22 13:48 07/10/22 19:00 07/10/22 20:00 Temperature 97.6 F 97.6 F 98.2 F Pulse Rate 89 88 90 Respiratory Rate 18 16 16 Blood Pressure 118/66 147/75 H 114/73 Pulse Oximetry 94 98 94 Oxygen Delivery 07/10/22 20:00 07/11/22 00:00 07/11/22 04:00 Temperature 98.7 F 98.5 F Pulse Rate 88 85 Respiratory Rate 16 16 Blood Pressure 114/64 117/60 Pulse Oximetry 97 96 Oxygen Delivery Room Air 07/11/22 08:40 07/11/22 10:00 Temperature 97.7 F Pulse Rate 82 Respiratory Rate 16 Blood Pressure 122/68 Pulse Oximetry 96 Oxygen Delivery Room Air Intake/Output Intake/Output: Intake & Output 07/08/22 07/09/22 07/10/22 07/11/22 23:59 23:59 23:59 23:59 Intake Total 1250 3500 1200 Output Total 300 400 Balance 1250 3200 800 Meds/Results Medications: Active Medications Generic Name Dose Route Start Last Admin Trade Name Freq PRN Reason Stop Dose Admin Sodium Chloride 1,000 mls @ 100 mls/hr 07/09/22 20:15 07/11/22 08:33 Normal Saline Iv IV CONT 125 mls/hr .Q10H PO Administration Piperacillin/Tazobactam/Dextrose 3.375 gm in 50 mls @ 100 mls/hr 07/10/22 03:00 07/11/22 09:13 Zosyn 3.375 Gm/D5w 50ml Pm IVPB Infused Q6H PO Infusion Acetaminophen 1,000 mg in 100 mls @ 400 mls/hr 07/10/22 13:39 07/11/22 05:38 Ofirmev 1,000 Mg Ivpb IVPB 07/11/22 13:38 Infused Q6H PRN Infusion Pain Rated 1-5 Morphine Sulfate 2 mg 07/10/22 13:46 Morphine Sulfate (*Crx) 2 Mg/Ml Inj IV PUSH Q3H PRN Pain 6-10 Ondansetron HCl 4 mg 07/09/22 20:14 07/11/22 03:30 Ondansetron Inj 4 Mg/2 Ml Vial IV PUSH 4 mg Q4H PRN Administration Nausea Pantoprazole Sodium 40 mg 07/10/22 09:00 07/11/22 08:33 Pantoprazole Sodium Iv 40 Mg Vial IV PUSH 40 mg QAM PO Administration Radiology Results: ITS Impressions Abdomen/Pelvis CT 07/09/22 18:42 IMPRESSION: Complicated sigmoid diverticulitis with a 6.6 cm pericolonic contained perforation/early abscess in the deep pelvis Labs Labs: Laboratory Results - last 24 hr 07/11/22 07/11/22 07/11/22
--- NOTE | 2022-07-11 12:07 | SUR.OPER ---
[id number] moderate sedation vital signs in CT Dept
--- NOTE | 2022-07-11 12:11 | WPDMODSED ---
Moderate Sedation Note-Pt Data Patient Data Diagnosis: Perisigmoid abscess. Present Complaint: Perisigmoid abscess. Procedure to be performed/Plan: CT-guided perisigmoid abscess drainage. Allergies Allergy/AdvReac Type Severity Reaction Status Date / Time telithromycin Allergy Unknown Unknown Verified 07/09/22 17:02 Home Medications Medication Instructions Recorded Confirmed Type fenofibrate 160 mg tablet 160 mg PO DAILY 06/29/21 07/09/22 History lisinopril 20 1 tablet PO DAILY 06/29/21 07/09/22 History mg-hydrochlorothiazide 12.5 mg tablet omeprazole 40 mg capsule,delayed 40 mg PO DAILY 06/29/21 07/09/22 History release ciprofloxacin HCl 500 mg tablet 500 mg PO DAILY 07/09/22 07/09/22 History metronidazole 500 mg tablet 500 mg PO DAILY 07/09/22 07/09/22 History Current Medications: Active Medications Sodium Chloride (Normal Saline Iv) 1,000 mls @ 100 mls/hr IV CONT .Q10H [facility] Last Infusion: 07/11/22 11:53 Dose: 0 mls/hr Piperacillin/Tazobactam/Dextrose (Zosyn 3.375 Gm/D5w 50ml Pm) 3.375 gm in 50 mls @ 100 mls/hr IVPB Q6H [facility] Last Infusion: 07/11/22 09:13 Dose: Infused Acetaminophen (Ofirmev 1,000 Mg Ivpb) 1,000 mg in 100 mls @ 400 mls/hr IVPB Q6H PRN PRN Reason: Pain Rated 1-5 Stop: 07/11/22 13:38 Last Infusion: 07/11/22 05:38 Dose: Infused Morphine Sulfate (Morphine Sulfate (*Crx) 2 Mg/Ml Inj) 2 mg IV PUSH Q3H PRN PRN Reason: Pain 6-10 Ondansetron HCl (Ondansetron Inj 4 Mg/2 Ml Vial) 4 mg IV PUSH Q4H PRN PRN Reason: Nausea Last Admin: 07/11/22 11:45 Dose: 4 mg Pantoprazole Sodium (Pantoprazole Sodium Iv 40 Mg Vial) 40 mg IV PUSH QAM [facility] Last Admin: 07/11/22 08:33 Dose: 40 mg Sedation/Anesthesia: No previous sedation/anesthesia problems (including family history). [facility] Past Medical History Medical History (Updated 07/10/22 @ 13:41 by Della Marcus PA-C) Claustrophobia Diverticulitis 2020, 2022 Essential hypertension GERD (gastroesophageal reflux disease) Hypertriglyceridemia Obesity (BMI 30-39.9) Surgical History Surgical History History of Achilles tendon repair History of laparoscopic cholecystectomy (04/2017) Status post cystoscopy with ureteral stent placement Left 08/2013, right 01/2018; Dr. Gregorio Family History Family History Mother Carcinoma of colon With metastases to the brain Father CHF (congestive heart failure) Dementia Sibling Hypothyroidism Other Hypertension Social History Social History Social History: Patient was for 45 years but has been since 2019. Her of leukemia. She is a lifelong nonsmoker intense not drink any significant amount of alcohol. 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 She has 2 daughters who she does admit as her surrogate decision makers. Code status: Full code Smoking status: Never smoker Alcohol intake: never Substance use: never Lack of Transportation: No Lack of Food: Never True Current Housing: I Have Housing Concerned About Future Housing: No Difficulty Paying Gas/Electric Bills: No Difficulty Paying for Meds: No Currently Unemployed: No Education: Associate Degree Difficulty w/ Childcare or Family Care: No Spiritual care concerns: No Mod Sed Physical Exam Physical Exam Pre Procedural Exam: Normal: Lungs, Heart Rate and Heart Rhythm and Variation: Appearance (Obese.) and Abdomen (Abdominal tenderness, left worse than right.) Hours since solid foods: 12 Hours since liquid intake: 12 Mallampati Classification: class II Internal Medicine - PN: Obj Da Vital Signs Vital Signs: Vital Signs - 24 hr 07/10/22 13:48 07/10/22 19:00 07/10/22 20:00 Temperature 36.4 C 36.4 C 36.8 C Pulse Rate 89 88 90 Respiratory Rate 18 16 16 Blood Pressure 118/66 147
--- NOTE | 2022-07-11 15:58 | PM.IMPN ---
Progress Note: A&P Assessment and Plan (1) Diverticulitis of intestine with perforation and abscess: Qualifiers: Diverticulitis bleeding: without bleeding Diverticulitis site: large intestine Qualified Code(s): K57.20 - Diverticulitis of large intestine with perforation and abscess without bleeding Code(s): K57.80 - Diverticulitis of intestine, part unspecified, with perforation and abscess without bleeding Status: Deleted Assessment and Plan: Patient has diverticulitis with perforation and abscess measuring greater than 6 cm. Continue empiric antibiotic therapy with Zosyn. Appreciate general surgery consultation. Underwent CT-guided percutaneous abscess drainage today. Aerobic and anaerobic cultures sent. Advance to clear liquids. Continue gentle IV fluids until tolerating diet. Analgesics available as needed. (2) Sepsis: Code(s): A41.9 - Sepsis, unspecified organism Status: Acute Assessment and Plan: Septic on presentation with leukocytosis and tachycardia. Source of infection as above. Patient is afebrile. Blood cultures negative to date. (3) Essential hypertension: Code(s): I10 - Essential (primary) hypertension Status: Acute Assessment and Plan: Blood pressures are stable. No hypotension. Resume home lisinopril-hydrochlorothiazide (4) GERD (gastroesophageal reflux disease): Code(s): K21.9 - Gastro-esophageal reflux disease without esophagitis Status: Chronic Assessment and Plan: No acute issues. PO Protonix during admission. Subjective Date/time seen: 07/11/22 15:58 Interval history: Date of service: 07/11/2022 Smiley Parsons is a 66-year-old female with a history of diverticulitis, hypertension, GERD, hypertriglyceridemia who is seen in follow-up for diverticulitis with abscess. she is feeling much better today. Her pain is resolved. She denies nausea or vomiting. No fevers or chills. She still has not had a bowel movement and denies passing flatus. Awaiting percutaneous drain placement this afternoon. Denies shortness breath, cough, chest pain, dizziness, lightheadedness. States that she is ambulating well. No urinary symptoms. Review of Systems Review of Systems: All systems reviewed & are unremarkable except as noted in HPI and below Exam Narrative: General: well-nourished, well-appearing 66-year-old female, sitting up bed, comfortable, NARD Neuro: awake, alert and oriented x4, speech clear, no focal neuro deficits noted HEENMT: normocephalic, atraumatic, EOMI, sclerae anicteric Respiratory: clear to auscultation bilaterally, nonlabored breathing Cardio: regular rate, regular rhythm with S1-S2 Abdomen: nondistended, normoactive bowel sounds, soft, nontender to palpation Extremities: no edema, erythema, or tenderness to palpation, DP pulses 2+ bilaterally Skin: no rashes or lesions, warm and dry Psych: appropriate mood and affect, judgment and insight intact Objective Data Vital Signs Vital Signs: Vital Signs - 24 hr 07/10/22 19:00 07/10/22 20:00 07/10/22 20:00 Temperature 97.6 F 98.2 F Pulse Rate 88 90 Respiratory Rate 16 16 Blood Pressure 147/75 H 114/73 Pulse Oximetry 98 94 Oxygen Delivery Room Air Oxygen Flow Rate 07/11/22 00:00 07/11/22 04:00 07/11/22 08:40 Temperature 98.7 F 98.5 F Pulse Rate 88 85 Respiratory Rate 16 16 Blood Pressure 114/64 117/60 Pulse Oximetry 97 96 Oxygen Delivery Room Air Oxygen Flow Rate 07/11/22 10:00 07/11/22 12:07 07/11/22 12:25 Temperature 97.7 F Pulse Rate 82 93 85 Respiratory Rate 16 18 18 Blood Pressure 122/68 133/76 137/60 Pulse Oximetry 96 97 98 Oxygen Delivery Room Air Nasal Cannula Oxygen Flow Rate 3 07/11/22 12:30 07/11/22 12:35 07/11/22 12:40 Temperature Pulse Rate 85 80 82 Respiratory Rate 16 16 16 Blood Pressure 137/71 131/72 127/68 Pulse Oximetry 99 97 98 Oxygen Delivery Nasal
[2022-07-11] MEDS: ACETAMINOPHEN 325 MG TABLET 650 MG PO ×2 (16:19→19:57)
[2022-07-12] MEDS: ONDANSETRON INJ 4 MG/2 ML VIAL IV PUSH ×4 (00:54→21:33)
[2022-07-12 02:09] VITALS: BP 112/66; PULSE 76; RESP 16; TEMP 36.6; O2SAT 93
[2022-07-12 05:44] VITALS: BP 128/80; PULSE 82; RESP 16; TEMP 36.8; O2SAT 94
[2022-07-12 06:50] LABS: Hematocrit 36.4 % (37.0-47.0); Hemoglobin 11.5 g/dL (12.0-15.0); Mean Corpuscular HGB Conc 31.6 g/dl (32-36); Mean Corpuscular Hemoglobin 27.8 pg (26-34); Mean Corpuscular Volume 88.1 fl (80-100); Mean Platelet Volume 9.5 fl (7.4-10.4); Platelet Count Result 294 k/mm3 (150-375); Red Blood Count 4.13 M/mm3 (4.2-5.4); Red Cell Distribution Width 14.4 % (11.5-14.5); White Blood Count 10.2 K/mm3 (4.5-10.0)
[2022-07-12 07:01] LABS: Anion Gap 6 mmol/L (8-16); Blood Urea Nitrogen 9 mg/dL (7-17); Calcium 8.5 mg/dL (8.4-10.2); Carbon Dioxide 24 mmol/L (22-30); Chloride 109 mmol/L (98-107); Estimated CRCL calculation 75 ml/min; Estimated Glomerular Filt Rate > 60; Glucose 109 mg/dL (65-110); Potassium 3.5 mmol/L (3.4-5.0); Sodium 139 mmol/L (137-145)
[2022-07-12] MEDS: ACETAMINOPHEN 325 MG TABLET 650 MG PO ×2 (07:55→14:22)
[2022-07-12] MEDS: hydroCHLOROthiazide 12.5 MG CAPSULE PO (08:00)
[2022-07-12] MEDS: lisinopriL 20 MG TABLET PO (08:00)
[2022-07-12] MEDS: PANTOPRAZOLE 40 MG TABLET PO (08:00)
[2022-07-12 08:29] LABS: CRP 16.4 mg/dL (<1.0)
[2022-07-12 10:00] VITALS: BP 113/73; PULSE 75; RESP 16; TEMP 37.1; O2SAT 95
[2022-07-12 14:05] VITALS: BP 128/75; PULSE 80; RESP 16; TEMP 36.8; O2SAT 100
--- NOTE | 2022-07-12 15:05 | PM.IMPN ---
Progress Note: A&P Assessment and Plan (1) Diverticulitis of intestine with perforation and abscess: Qualifiers: Diverticulitis bleeding: without bleeding Diverticulitis site: large intestine Qualified Code(s): K57.20 - Diverticulitis of large intestine with perforation and abscess without bleeding Code(s): K57.80 - Diverticulitis of intestine, part unspecified, with perforation and abscess without bleeding Status: Deleted Assessment and Plan: Patient has diverticulitis with perforation and abscess measuring greater than 6 cm. Continue empiric antibiotic therapy with Zosyn. Appreciate general surgery consultation. Underwent CT-guided percutaneous abscess drainage on 07/11. Aerobic and anaerobic cultures pending. Advance to full liquid diet. IV fluids discontinued as pt is tolerating diet. Analgesics available as needed. (2) Sepsis: Code(s): A41.9 - Sepsis, unspecified organism Status: Acute Assessment and Plan: Septic on presentation with leukocytosis and tachycardia. Source of infection as above. Patient is afebrile. Blood cultures negative to date. (3) Essential hypertension: Code(s): I10 - Essential (primary) hypertension Status: Acute Assessment and Plan: Blood pressures are stable. No hypotension. Resume home lisinopril-hydrochlorothiazide (4) GERD (gastroesophageal reflux disease): Code(s): K21.9 - Gastro-esophageal reflux disease without esophagitis Status: Chronic Assessment and Plan: No acute issues. PO Protonix during admission. Subjective Date/time seen: 07/12/22 15:05 Interval history: Date of service: 07/12/2022 Smiley Parsons is a 66-year-old female with a history of diverticulitis, hypertension, GERD, hypertriglyceridemia who is seen in follow-up for diverticulitis with abscess. She endorses discomfort at the site of the drain she is having hard time sitting down due to this drain placement. She has no abdominal pain. She had a small loose stool yesterday. Today she endorses some nausea that is improving with antiemetics. No emesis. She notes that she awoke in the middle of the night with nausea. She is tolerating clear liquids. Denies shortness of breath, cough, chest pain, fever, chills, dizziness, or lightheadedness. Review of Systems Review of Systems: All systems reviewed & are unremarkable except as noted in HPI and below Exam Narrative: General: well-nourished, well-appearing 66-year-old female, sitting up bed, comfortable, NARD Neuro: awake, alert and oriented x4, speech clear, no focal neuro deficits noted HEENMT: normocephalic, atraumatic, EOMI, sclerae anicteric Respiratory: clear to auscultation bilaterally, nonlabored breathing Cardio: regular rate, regular rhythm with S1-S2 Abdomen: nondistended, normoactive bowel sounds, soft, nontender to palpation, abscess drain with cannon output Extremities: no edema, erythema, or tenderness to palpation, DP pulses 2+ bilaterally Skin: no rashes or lesions, warm and dry Psych: appropriate mood and affect, judgment and insight intact Objective Data Vital Signs Vital Signs: Vital Signs - 24 hr 07/11/22 18:00 07/11/22 20:00 07/11/22 22:00 Temperature 98.2 F 98.4 F Pulse Rate 84 88 Respiratory Rate 16 16 Blood Pressure 124/64 119/60 Pulse Oximetry 95 95 93 Oxygen Delivery Room Air 07/12/22 02:09 07/12/22 05:44 07/12/22 07:52 Temperature 97.9 F 98.3 F Pulse Rate 76 82 Respiratory Rate 16 16 Blood Pressure 112/66 128/80 Pulse Oximetry 93 94 Oxygen Delivery Room Air 07/12/22 10:00 07/12/22 14:05 Temperature 98.7 F 98.3 F Pulse Rate 75 80 Respiratory Rate 16 16 Blood Pressure 113/73 128/75 Pulse Oximetry 95 100 Oxygen Delivery Intake/Output Intake/Output: Intake & Output 07/09/22 07/10/22 07/11/22 07/12/22 23:59 23:59 23:59 23:59 Intake Total 1250 3500 1638 1119 Output Total 300 750 635 Bal
--- NOTE | 2022-07-12 15:23 | PM.PNGS ---
Progress Note: A&P Assessment and Plan (1) Diverticulitis of large intestine with perforation and abscess: Code(s): K57.20 - Diverticulitis of large intestine with perforation and abscess without bleeding Status: Acute Assessment and Plan: Continues to clinically improve. Abdominal pain improving daily and no tenderness on exam today. WBC trending down. S/p perc drain placement 07/11/22, continue to monitor output. Abscess cx pending. Continue IV Zosyn. Advance to full liquids. Dietitian consulted for education on low vs high fiber diet. (2) Sepsis: Code(s): A41.9 - Sepsis, unspecified organism Status: Acute Assessment and Plan: WBC count continues to improve. She is afebrile. Blood cx NGTD. Continue IV antibiotics and management mentioned above. (3) Essential hypertension: Code(s): I10 - Essential (primary) hypertension Status: Acute Plan I have discussed the patient's case and plan of care with Dr. Lombardo. Subjective Subjective Date/Time Seen: 07/12/22 15:23 Patient reports: no new complaints, feels better, tolerating liquids well, flatus, bowel movement (last night, formed) and afebrile Interval history: Patient continues to improve daily. She denies any abdominal pain today. She has been sitting up in the chair today. Her only complaint is the discomfort of the left gluteal perc drain, but tolerable. She did have some slight nausea earlier today, but no vomiting. Review of Systems Review of Systems: All systems reviewed & are unremarkable except as noted in HPI and below Exam Const: General: alert; No acute distress Orientation/consciousness: patient oriented x3 GI: Inspection: non-distended, obesity and other (perc drain with thin cannon drainage) GI Palp: Yes Soft to palpation, No Tenderness to palpation present (GI), No Guarding due to palpation present (GI) and No Rebound tenderness present Auscultation: normal bowel sounds Objective Data Vital Signs Vital Signs: Vital Signs - 24 hr 07/11/22 18:00 07/11/22 20:00 07/11/22 22:00 Temperature 98.2 F 98.4 F Pulse Rate 84 88 Respiratory Rate 16 16 Blood Pressure 124/64 119/60 Pulse Oximetry 95 95 93 Oxygen Delivery Room Air 07/12/22 02:09 07/12/22 05:44 07/12/22 07:52 Temperature 97.9 F 98.3 F Pulse Rate 76 82 Respiratory Rate 16 16 Blood Pressure 112/66 128/80 Pulse Oximetry 93 94 Oxygen Delivery Room Air 07/12/22 10:00 07/12/22 14:05 Temperature 98.7 F 98.3 F Pulse Rate 75 80 Respiratory Rate 16 16 Blood Pressure 113/73 128/75 Pulse Oximetry 95 100 Oxygen Delivery Intake/Output Intake/Output: Intake & Output 07/09/22 07/10/22 07/11/22 07/12/22 23:59 23:59 23:59 23:59 Intake Total 1250 3500 1638 1119 Output Total 300 750 635 Balance 1250 3200 888 484 Meds/Results Medications: Active Medications Generic Name Dose Route Start Last Admin Trade Name Freq PRN Reason Stop Dose Admin Acetaminophen 650 mg 07/11/22 15:00 07/12/22 14:22 Acetaminophen 325 Mg Tablet PO 650 mg Q4H PRN Administration Mild Pain (1-3) or Fever Hydrocodone Bitart/Acetaminophen 1 tab 07/11/22 15:55 Hydrocodone/Acetaminophen (*Crx) 5-325 Mg Tablet PO Q6H PRN Pain Rated 4-6 Hydrochlorothiazide 12.5 mg 07/12/22 09:00 07/12/22 08:00 Hydrochlorothiazide 12.5 Mg Capsule PO 12.5 mg QAM PO Administration Piperacillin/Tazobactam/Dextrose 3.375 gm in 50 mls @ 100 mls/hr 07/10/22 03:00 07/12/22 14:14 Zosyn 3.375 Gm/D5w 50ml Pm IVPB 100 mls/hr Q6H PO Administration Lisinopril 20 mg 07/12/22 09:00 07/12/22 08:00 Lisinopril 20 Mg Tablet PO 20 mg QAM PO Administration Morphine Sulfate 2 mg 07/10/22 13:46 Morphine Sulfate (*Crx) 2 Mg/Ml Inj IV PUSH Q3H PRN Pain 7-10 Ondansetron HCl 4 mg 07/09/22 20:14 07/12/22 14:15 Ondansetron Inj 4 Mg/2 Ml Vial IV PUSH 4 mg Q4H PRN Administration Nausea
[2022-07-12 18:00] VITALS: BP 130/70; PULSE 86; RESP 16; TEMP 36.7; O2SAT 100
[2022-07-12 21:55] VITALS: BP 135/66; PULSE 82; RESP 16; TEMP 37.7; O2SAT 94
[2022-07-13 01:35] VITALS: BP 134/70; PULSE 74; RESP 16; TEMP 36.8; O2SAT 95
[2022-07-13 05:32] LABS: Hematocrit 35.6 % (37.0-47.0); Hemoglobin 11.5 g/dL (12.0-15.0); Mean Corpuscular HGB Conc 32.3 g/dl (32-36); Mean Corpuscular Hemoglobin 27.9 pg (26-34); Mean Corpuscular Volume 86.4 fl (80-100); Mean Platelet Volume 9.3 fl (7.4-10.4); Platelet Count Result 299 k/mm3 (150-375); Red Blood Count 4.12 M/mm3 (4.2-5.4); Red Cell Distribution Width 14.2 % (11.5-14.5); White Blood Count 9.5 K/mm3 (4.5-10.0)
[2022-07-13 05:52] LABS: Anion Gap 6 mmol/L (8-16); Blood Urea Nitrogen 7 mg/dL (7-17); Calcium 8.3 mg/dL (8.4-10.2); Carbon Dioxide 25 mmol/L (22-30); Chloride 105 mmol/L (98-107); Estimated CRCL calculation 86 ml/min; Estimated Glomerular Filt Rate > 60; Glucose 102 mg/dL (65-110); Potassium 3.3 mmol/L (3.4-5.0); Sodium 136 mmol/L (137-145)
--- NOTE | 2022-07-13 07:29 | P.PNIM_ITS ---
Progress Note: A&P Assessment and Plan (1) Diverticulitis of intestine with perforation and abscess: Qualifiers: Diverticulitis bleeding: without bleeding Diverticulitis site: large intestine Qualified Code(s): K57.20 - Diverticulitis of large intestine with perforation and abscess without bleeding Code(s): K57.80 - Diverticulitis of intestine, part unspecified, with perforation and abscess without bleeding Status: Deleted Assessment and Plan: * Diverticulitis with perforation and abscess measuring greater than 6 cm. * Continue empiric antibiotic therapy with Zosyn. * Appreciate general surgery consultation. * Underwent CT-guided percutaneous abscess drainage on 07/11. * Aerobic and anaerobic cultures pending. * Advance to full liquid diet per general surgery * IV fluids discontinued as pt is tolerating diet. * Analgesics available as needed. (2) Sepsis: Code(s): A41.9 - Sepsis, unspecified organism Status: Acute Assessment and Plan: * Septic on presentation with leukocytosis and tachycardia. * Source of infection as above. * Patient is afebrile. * Blood cultures negative to date. * Trend labs * Adjust therapy as appropriate (3) Essential hypertension: Code(s): I10 - Essential (primary) hypertension Status: Acute Assessment and Plan: * BP 134/70 * Blood pressures are stable. * No hypotension. * Resume home lisinopril-hydrochlorothiazide * Trend BP * Adjust therapy as indicated (4) GERD (gastroesophageal reflux disease): Code(s): K21.9 - Gastro-esophageal reflux disease without esophagitis Status: Chronic Assessment and Plan: * No acute issues. * PO Protonix during admission. Plan Replace potassium with 40mcg PO Time Spent With Patient Time with patient: Greater than 35 minutes Subjective Date/time seen: 07/13/22 07:29 Interval history: 07/13/22 07/12/2022 Smiley Parsons is a 66-year-old female with a history of diverticulitis, hypertension, GERD, hypertriglyceridemia who is seen in follow-up for diverticulitis with abscess. She endorses discomfort at the site of the drain she is having hard time sitting down due to this drain placement. She has no abdominal pain. She had a small loose stool yesterday. Today she endorses some nausea that is improving with antiemetics. No emesis. She notes that she awoke in the middle of the night with nausea. She is tolerating clear liquids. Denies shortness of breath, cough, chest pain, fever, chills, dizziness, or lightheadedness. 07/11/2022 Smiley Parsons is a 66-year-old female with a history of diverticulitis, hypertension, GERD, hypertriglyceridemia who is seen in follow-up for diverticulitis with abscess.? she is feeling much better today.? Her pain is resolved.? She denies nausea or vomiting.? No fevers or chills.? She still has not had a bowel movement and denies passing flatus.? Awaiting percutaneous drain placement this afternoon.? Denies shortness breath, cough, chest pain, dizziness, lightheadedness.? States that she is ambulating well.? No urinary symptoms. 07/10/2022 Smiley Parsons is a 66-year-old female with a history of diverticulitis, hypertension, GERD, hypertriglyceridemia who is seen in follow-up for diverticulitis with abscess.? Patient states that her pain is improved today.? Currently rates it as a 7/10 describes pain ?all over? her abdomen, howev
--- NOTE | 2022-07-13 07:29 | PM.IMPN ---
Progress Note: A&P Assessment and Plan (1) Diverticulitis of intestine with perforation and abscess: Qualifiers: Diverticulitis bleeding: without bleeding Diverticulitis site: large intestine Qualified Code(s): K57.20 - Diverticulitis of large intestine with perforation and abscess without bleeding Code(s): K57.80 - Diverticulitis of intestine, part unspecified, with perforation and abscess without bleeding Status: Deleted Assessment and Plan: Diverticulitis with perforation and abscess measuring greater than 6 cm. Continue empiric antibiotic therapy with Zosyn. Appreciate general surgery consultation. Underwent CT-guided percutaneous abscess drainage on 07/11. Aerobic and anaerobic cultures pending. Advance to full liquid diet per general surgery IV fluids discontinued as pt is tolerating diet. Analgesics available as needed. (2) Sepsis: Code(s): A41.9 - Sepsis, unspecified organism Status: Acute Assessment and Plan: Septic on presentation with leukocytosis and tachycardia. Source of infection as above. Patient is afebrile. Blood cultures negative to date. Trend labs Adjust therapy as appropriate (3) Essential hypertension: Code(s): I10 - Essential (primary) hypertension Status: Acute Assessment and Plan: BP 134/70 Blood pressures are stable. No hypotension. Resume home lisinopril-hydrochlorothiazide Trend BP Adjust therapy as indicated (4) GERD (gastroesophageal reflux disease): Code(s): K21.9 - Gastro-esophageal reflux disease without esophagitis Status: Chronic Assessment and Plan: No acute issues. PO Protonix during admission. Plan Replace potassium with 40mcg PO Time Spent With Patient Time with patient: Greater than 35 minutes Subjective Date/time seen: 07/13/22 07:29 Interval history: 07/13/22 07/12/2022 Smiley Parsons is a 66-year-old female with a history of diverticulitis, hypertension, GERD, hypertriglyceridemia who is seen in follow-up for diverticulitis with abscess. She endorses discomfort at the site of the drain she is having hard time sitting down due to this drain placement. She has no abdominal pain. She had a small loose stool yesterday. Today she endorses some nausea that is improving with antiemetics. No emesis. She notes that she awoke in the middle of the night with nausea. She is tolerating clear liquids. Denies shortness of breath, cough, chest pain, fever, chills, dizziness, or lightheadedness. 07/11/2022 Smiley Parsons is a 66-year-old female with a history of diverticulitis, hypertension, GERD, hypertriglyceridemia who is seen in follow-up for diverticulitis with abscess.? she is feeling much better today.? Her pain is resolved.? She denies nausea or vomiting.? No fevers or chills.? She still has not had a bowel movement and denies passing flatus.? Awaiting percutaneous drain placement this afternoon.? Denies shortness breath, cough, chest pain, dizziness, lightheadedness.? States that she is ambulating well.? No urinary symptoms. 07/10/2022 Smiley Parsons is a 66-year-old female with a history of diverticulitis, hypertension, GERD, hypertriglyceridemia who is seen in follow-up for diverticulitis with abscess.? Patient states that her pain is improved today.? Currently rates it as a 7/10 describes pain ?all over? her abdomen, however is mostly concentrated on the left side.? She had several episodes of emesis 2 days ago but no emesis today.? Nausea has improved.? She denies fever or chills.? She had diarrhea 2 days ago but no bowel movements since then.? Denies any blood in her stool.? Denies shortness of breath, cough, chest pain, dizziness, lightheadedness, weakness, dysuria 07/09/22? 21:49 66-year-old female with past medical history of GERD, hypertriglyceridemia, essential hypertension and d
[2022-07-13] MEDS: ONDANSETRON INJ 4 MG/2 ML VIAL IV PUSH (09:03)
[2022-07-13] MEDS: lisinopriL 20 MG TABLET PO (09:03)
[2022-07-13] MEDS: PANTOPRAZOLE 40 MG TABLET PO (09:03)
[2022-07-13] MEDS: hydroCHLOROthiazide 12.5 MG CAPSULE PO (09:03)
[2022-07-13] MEDS: POTASSIUM CHLORIDE 20 MEQ TABLET 40 MEQ PO (09:03)
[2022-07-13] MEDS: ACETAMINOPHEN 325 MG TABLET 650 MG PO (09:12)
--- NOTE | 2022-07-13 09:19 | PM.PNGS ---
Progress Note: A&P Assessment and Plan (1) Diverticulitis of large intestine with perforation and abscess: Code(s): K57.20 - Diverticulitis of large intestine with perforation and abscess without bleeding Status: Acute Assessment and Plan: Continues to improve and WBC down to normal. Will advance to low fiber diet. If she is tolerating her diet this afternoon, then it is okay from our standpoint to discharge the patient today on oral antibiotics. Will continue an additional 10 days of Augmentin and Flagyl. She will go home with the perc drain and follow-up with Dr. Lombardo on Monday for possible drain removal. (2) Sepsis: Code(s): A41.9 - Sepsis, unspecified organism Status: Acute (3) Essential hypertension: Code(s): I10 - Essential (primary) hypertension Status: Acute Plan I have discussed the patient's case and plan of care with Dr. Lombardo. Subjective Subjective Date/Time Seen: 07/13/22 09:19 Patient reports: no new complaints, tolerating liquids well, flatus, bowel movement (x 2 loose stools yesterday), nausea and afebrile Interval history: Patient feeling well this morning. No new events overnight. She is tolerating clear liquids. She does report some intermittent nausea, but feels it is when she is hungry like this morning prior to breakfast. Nausea improves after eating. Denies any abdominal pain. Bloating improving. Only discomfort is the perc drain. Review of Systems Review of Systems: All systems reviewed & are unremarkable except as noted in HPI and below Exam Const: General: alert; No acute distress Orientation/consciousness: patient oriented x3 GI: Inspection: non-distended and other (perc drain with thin cannon drainage) GI Palp: Yes Soft to palpation, No Tenderness to palpation present (GI), No Guarding due to palpation present (GI) and No Rebound tenderness present Auscultation: normal bowel sounds Extrem: General: normal to inspection Objective Data Vital Signs Vital Signs: Vital Signs - 24 hr 07/12/22 10:00 07/12/22 14:05 07/12/22 18:00 Temperature 98.7 F 98.3 F 98.0 F Pulse Rate 75 80 86 Respiratory Rate 16 16 16 Blood Pressure 113/73 128/75 130/70 Pulse Oximetry 95 100 100 Oxygen Delivery 07/12/22 21:55 07/12/22 21:30 07/13/22 01:35 Temperature 99.8 F H 98.2 F Pulse Rate 82 74 Respiratory Rate 16 16 Blood Pressure 135/66 134/70 Pulse Oximetry 94 95 Oxygen Delivery Room Air Intake/Output Intake/Output: Intake & Output 07/10/22 07/11/22 07/12/22 07/13/22 23:59 23:59 23:59 23:59 Intake Total 3500 1638 1914 50 Output Total 226 830 5683 50 Balance 3200 888 679 0 Meds/Results Medications: Active Medications Generic Name Dose Route Start Last Admin Trade Name Freq PRN Reason Stop Dose Admin Acetaminophen 650 mg 07/11/22 15:00 07/13/22 09:12 Acetaminophen 325 Mg Tablet PO 650 mg Q4H PRN Administration Mild Pain (1-3) or Fever Hydrocodone Bitart/Acetaminophen 1 tab 07/11/22 15:55 Hydrocodone/Acetaminophen (*Crx) 5-325 Mg Tablet PO Q6H PRN Pain Rated 4-6 Hydrochlorothiazide 12.5 mg 07/12/22 09:00 07/13/22 09:03 Hydrochlorothiazide 12.5 Mg Capsule PO 12.5 mg QAM PO Administration Piperacillin/Tazobactam/Dextrose 3.375 gm in 50 mls @ 100 mls/hr 07/10/22 03:00 07/13/22 09:03 Zosyn 3.375 Gm/D5w 50ml Pm IVPB 100 mls/hr Q6H PO Administration Lisinopril 20 mg 07/12/22 09:00 07/13/22 09:03 Lisinopril 20 Mg Tablet PO 20 mg QAM PO Administration Morphine Sulfate 2 mg 07/10/22 13:46 Morphine Sulfate (*Crx) 2 Mg/Ml Inj IV PUSH Q3H PRN Pain 7-10 Ondansetron HCl 4 mg 07/09/22 20:14 07/13/22 09:03 Ondansetron Inj 4 Mg/2 Ml Vial IV PUSH 4 mg Q4H PRN Administration Nausea Pantoprazole Sodium 40 mg 07/12/22 09:00 07/13/22 09:03 Pantoprazole 40 Mg Tablet PO 40 mg QAM PO Administration Radiology Results: IT
[2022-07-13 10:10] VITALS: BP 123/71; PULSE 80; RESP 16; TEMP 36.2; O2SAT 96
--- NOTE | 2022-07-13 11:45 | PM.DS ---
DS: Admitting Diagnosis Discharge Date 07/13/22 Admitting Diagnosis Diverticulitis with perforation and abscess DS: Discharge Diagnosis Discharge Diagnosis (1) Diverticulitis of intestine with perforation and abscess: Qualifiers: Diverticulitis bleeding: without bleeding Diverticulitis site: large intestine Qualified Code(s): K57.20 - Diverticulitis of large intestine with perforation and abscess without bleeding Code(s): K57.80 - Diverticulitis of intestine, part unspecified, with perforation and abscess without bleeding Status: Deleted Assessment and Plan: Diverticulitis with perforation and abscess measuring greater than 6 cm. Continue empiric antibiotic therapy with Zosyn. Appreciate general surgery consultation. Underwent CT-guided percutaneous abscess drainage on 07/11. Aerobic and anaerobic cultures pending. Advance to full liquid diet per general surgery IV fluids discontinued as pt is tolerating diet. Analgesics available as needed. (2) Sepsis: Code(s): A41.9 - Sepsis, unspecified organism Status: Acute Assessment and Plan: Septic on presentation with leukocytosis and tachycardia. Source of infection as above. Patient is afebrile. Blood cultures negative to date. Trend labs Adjust therapy as appropriate (3) Essential hypertension: Code(s): I10 - Essential (primary) hypertension Status: Acute Assessment and Plan: BP 134/70 Blood pressures are stable. No hypotension. Resume home lisinopril-hydrochlorothiazide Trend BP Adjust therapy as indicated (4) GERD (gastroesophageal reflux disease): Code(s): K21.9 - Gastro-esophageal reflux disease without esophagitis Status: Chronic Assessment and Plan: No acute issues. PO Protonix during admission. Plan Replace potassium with 40mcg PO DS: Summary Hospital Course Hospital Course: patient is 66-year-old female with a past medical history of GERD, hypertriglyceridemia, essential hypertension, diverticulosis who presented to the ED with abdominal pain. Patient stated this all started in June and she had received prescriptions for Cipro and Flagyl. Pain started to get worse and was involving the entire abdomen. General surgery was consulted. Patient was placed on bowel rest and was taken for a percutaneous drain insertion. Drain is draining a brown substance. Patient stated that her pain is a lot better today and she denies any chest pain, shortness a breath, nausea, vomiting, diarrhea, constipation, weakness or fatigue. Patient stated that she is really wanting to go home and is understanding of how the drain works and training has been given. Patient was able to tolerate a diet and is stable at this time. Blood cultures are negative for growth at this time. Aerobic and anaerobic cultures grew normal skin faustino. Patient has been on Zosyn and will go home with Augmentin and Flagyl. Per surgery patient will need 10 more days. Labs and vital signs are stable. Patient is stable for discharge at this time. Status at Discharge Functional status at discharge: independent ambulation Overall status at discharge: patient is progressing back to baseline Time Spent with Patient Time attestation: Total time spent providing and/or coordinating discharge services: 56 minutes Time spent: Greater than 30 minutes Specific discharge activities: Diagnostic testing, chart review, developing a treatment plan, education, care coordination documentation, physical exam, result review Exam Narrative: General: well-nourished, well-appearing 66-year-old female, sitting up bed, comfortable, NARD Neuro: awake, alert and oriented x4, speech clear, no focal neuro deficits noted HEENMT: normocephalic, atraumatic, EOMI, sclerae anicteric Respiratory: clear to auscultation bilaterally, nonlabored breathing Cardio:
== END 2022-07-13 14:38 | disposition home or self-care (01) | DRG 871 ==
LOC: ANHED 20:13 → ANH2MED 20:54
PROVIDERS: General Practice; Physician Assistant; Radiology Diagnostic Radiology; Surgery; Admitting Provider Internal Medicine; Emergency Provider Nurse Practitioner Family; PCP Family Medicine Sports Medicine; Visit Provider Nurse Practitioner Family
PROC: 0W9G30Z Drainage of Peritoneal Cavity with Drainage Device, Percutaneous Approach (ICD-10-PCS; principal; 2022-07-11 12:00)
DX: A41.9 Sepsis, unspecified organism (principal); K65.1 Peritoneal abscess; K57.20 Diverticulitis of large intestine with perforation and abscess without bleeding; I10 Essential (primary) hypertension; K21.9 Gastro-esophageal reflux disease without esophagitis; E78.1 Pure hyperglyceridemia; E66.9 Obesity, unspecified; F40.240 Claustrophobia; Z20.822 Contact with and (suspected) exposure to COVID-19; Z80.0 Family history of malignant neoplasm of digestive organs
CPT/HCPCS: 36415; 74177; 75989; 80048; 80053; 81001; 83605; 83690; 85025; 85027; 85610; 85730; 86140; 87040; 87070; 87075; 87076; 87205; 87637; 96361; 96365; 96366; 96367; 96375; 96376; 99285; A9270; C1769; C9113; G0378; J0131; J2250; J2270; J2405; J2543; J3010; J7030; Q9967

== ENCOUNTER 2022-08-26 09:49 | Outpatient (CLI) | payer MEDICARE, SELFPAY ==
--- NOTE | 2022-08-26 10:47 | ECG_ITS ---
Measurements Intervals [place] Rate: 74 P: 23 MO: 148 QRS: -13 QRSD: 86 T: 6 QT: 363 QTc: 403 Interpretive Statements REDUCED ECG QUALITY BECAUSE OF BASELINE ARTIFACT SINUS RHYTHM LOW QRS VOLTAGE IN PRECORDIAL LEADS [QRS DEFLECTION < 1.0 mV IN CHEST LEADS] VOLTAGE CRITERIA FOR LVH [MEETS CRITERIA IN ONE OF: R(aVL), S(V1), R(V5), R(V5/V6)+S(V1)] NO PREVIOUS ECG AVAILABLE FOR COMPARISON Electronically Signed On 08-26-2022 15:31:48 [employer] by Nasim Saxena M.D.
== END 2022-08-26 09:50 | disposition home or self-care (01) ==
LOC: ANHSURGERY 09:54
PROVIDERS: PCP Family Medicine Sports Medicine; Visit Provider Surgery
DX: K57.20 Diverticulitis of large intestine with perforation and abscess without bleeding (principal); I10 Essential (primary) hypertension; Z01.818 Encounter for other preprocedural examination
CPT/HCPCS: 36415; 86850; 86900; 86901; 93005

== ENCOUNTER 2022-09-07 14:30 | Inpatient (IN) | payer MEDICARE, SELFPAY ==
[2022-08-26 09:59] VITALS: BMI 34.7
--- NOTE | 2022-08-26 10:23 | PC.NURSE ---
Report to the Outpatient Waiting Room, entrance under the green pavilion located off [facility], at time __0600 on date __09/07/22 . Planned Procedure Time: __0730 . Time changes happen often and if your time is changed the preop area will call you the afternoon before. - You and your visitor will be asked to self-screen and do not enter if you have any COVID symptoms. - Only one visitor is requested with a max of two and NO children visitors are allowed at this time. - The patient visitor may be requested to leave or wait in car when not with patient due to distancing restrictions. - A mask is optional within the hospital at this time. Patients may have clear liquids (water, carbonated beverages, clear teas, apple juice) until 3 hours prior to surgery with a maximum of 20 ounces. - No food from midnight until time of surgery - Infants may have breast milk until 4 hours before surgery, formula 6 hours prior to surgery. - Children will be allowed to drink immediately following surgery. If applicable, please bring a bottle or sippy cup to assist with drinking. Juice, water, soda, and popsicles are readily available. For infants on formula, please bring formula the day of surgery. Pacifiers are allowed. Take the following medications with a SIP of water the morning of surgery: __NONE DO NOT STOP ANY OF YOUR OTHER PRESCRIPTION MEDICATIONS PRIOR TO SURGERY ?EXCEPT THE FOLLOWING Medications to discontinue per physician ___ALL VITAMINS/SUPPLEMENTS 3 DAYS PRE OP PER ANESTHESIA.LAST DOSE 09/03/22 ENSURE BUNDLE PACK AND BOWEL PREP PER DR HARDIN HIBICLENS SHOWER DAY BEFORE SURGERY AND MORNING OF SURGERY Please no make-up, nail danish, hairspray, perfume, deodorant, or body powder the day of surgery. No jewelry (including any body piercings) or valuables the day of surgery, leave them at home. Please take a shower or bath the night before, or the morning of, surgery with an antibacterial soap. Wear comfortable, loose fitting clothing. Children are encouraged to wear pajamas. - Jewelry must be removed prior to entering the operating room. Rings and piercings that are not removed may be cut off. - The hospital will not accept responsibility for valuables. - Please leave all valuables, including medications, at home the day of surgery. If you are going home after surgery, a licensed mail truck driver must drive you home. - NO public transportation without another adult if you receive anesthesia. - We recommend that an adult stay with you for 24 hours following discharge. - We also recommend that you do not drive, make important decision, drink alcoholic beverages, or take any drugs that were not prescribed by your health care provider for at least 24 hours after your discharge time. Follow any additional instructions given to you from your surgeon. If you or anyone in your household have experienced Covid symptoms in the past week, please notify your surgeon or the nurse liaison at the phone number below for possible testing. VERBAL AND WRITTEN instructions given to __PATIENT and asked if any additional questions and then verbalized understanding. Patient advised to call surgeon office or pre surgery nurse liaison [phone] if any additional questions.
[2022-08-26 10:40] VITALS: BP 114/65; PULSE 78; RESP 18; TEMP 37.2; O2SAT 98
[2022-09-07] VITALS (13 sets, daily range): BP systolic 109–138; BP diastolic 64–86; PULSE 74–90; RESP 10–20; TEMP 36.2–37.6; O2SAT 93–100; BMI 34.2
[2022-09-07] MEDS: ACETAMINOPHEN 500 MG TABLET 1000 MG PO ×3 (06:29→23:18)
[2022-09-07] MEDS: LACTATED RINGERS 1,000 ML 30 ML IV CONT ×3 (06:39→13:01)
[2022-09-07] MEDS: KETOROLAC 15 MG/ML VIAL (*BKC) IV PUSH (06:40)
--- NOTE | 2022-09-07 06:56 | WPDANESEPPF ---
Anes - Initial Pre Proc Eval Procedure: Operation Date: 09/07/22 07:30 Proposed Procedures p Robotic Assisted Laparoscopic Sigmoid Colectomy, Possible Open - Xavier Lombardo DO s Stent Placement for Abdominal Surgery - Jcarlos Forman MD Date/Time: 09/07/22 06:56 Surgeon: Xavier Lombardo DO Pre Op Diagnosis: Sigmoid Diverticulitis with Abscess Patient Data Age: 66 Gender: F Height: 1.63 m Weight: 90.3 kg Last Vital Signs Temp 36.6 C 09/07/22 06:08 Pulse 90 09/07/22 06:08 Resp 16 09/07/22 06:08 BP 138/80 09/07/22 06:08 Pulse Ox 96 09/07/22 06:08 O2 Del Method Room Air 09/07/22 06:08 Allergies Allergy/AdvReac Type Severity Reaction Status Date / Time telithromycin Allergy Intermediate Palpitation Verified 09/07/22 06:23 s Home Medications Medication Instructions Recorded Confirmed Type fenofibrate 160 mg tablet 160 mg PO DAILY 06/29/21 09/07/22 History lisinopril 20 1 tablet PO DAILY 06/29/21 09/07/22 History mg-hydrochlorothiazide 12.5 mg tablet omeprazole 40 mg capsule,delayed 40 mg PO DAILY 06/29/21 09/07/22 History release calcium citrate 315 mg 2 tablet PO DAILY 08/26/22 09/07/22 History calcium-vitamin D3 6.25 mcg (250 unit) tablet Patient hx anesthesia problems: none Family hx anesthesia problems: none Results Review: All pre-operative results and documents have been reviewed as part of the pre-operative evaluation. [facility] Past Medical History Medical History Claustrophobia Diverticulitis 2020, 2022 Essential hypertension GERD (gastroesophageal reflux disease) Hypertriglyceridemia Obesity (BMI 30-39.9) Surgical History Surgical History History of Achilles tendon repair History of laparoscopic cholecystectomy (04/2017) Status post cystoscopy with ureteral stent placement Left 08/2013, right 01/2018; Dr. Gregorio Family History Family History Mother Carcinoma of colon With metastases to the brain Father CHF (congestive heart failure) Dementia Sibling Hypothyroidism Other Hypertension Social History Social History Social History: Patient was for 45 years but has been since 2019. Her of leukemia. She is a lifelong nonsmoker intense not drink any significant amount of alcohol. 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 She has 2 daughters who she does admit as her surrogate decision makers. Code status: Full code Smoking status: Never smoker Alcohol intake: never Substance use: never Lack of Transportation: No Lack of Food: Never True Current Housing: I Have Housing Concerned About Future Housing: No Difficulty Paying Gas/Electric Bills: No Difficulty Paying for Meds: No Currently Unemployed: No Education: Associate Degree Difficulty w/ Childcare or Family Care: No Living arrangements: alone Spiritual care concerns: No Anes - Eval Final PreProcedure Day of Procedure 09/07/22 06:56 Patient weight: obese Heart: regular rate and rhythm Lungs: clear to auscultation Airway: Mallampati scale class II Neurological: alert and oriented Last oral intake: >/= 8 hours ASA classification: III Emergent: no Anesthetic plan: proceed Anesthesia type and monitoring: general ETT and standard monitoring Results Review: All pre-operative results and documents have been reviewed as part of the pre-operative evaluation. Informed Consent: The patient's anesthetic plan and its attendant risks and benefits were discussed with the patient/family/POA. Questions were solicited and answers provided to the satisfaction of the patient/family/POA.
[2022-09-07] MEDS: SCOPOLAMINE 1.5 MG PATCH TRANSDERM (07:05)
--- NOTE | 2022-09-07 07:12 | WPDHPUPDATE1 ---
History and Physical Update Update Date/Time: 09/07/22 07:12 History and Physical has been reviewed, including an updated exam of the patient. There are NO changes in the patient's condition. Risks, benefits, and alternatives have been discussed and questions answered. Patient agrees to proceed with procedure.
--- NOTE | 2022-09-07 07:13 | PM.IMHP ---
H&P: HPI History of Present Illness Date/Time: 09/07/22 07:13 Chief Complaint: Diverticulitis Narrative: 66 yo woman presents for sigmoid colectomy. She has a hx of hospitalization for diverticulitis with abscess. She completed treatment for this and now is ready to proceed with surgery. Review of Systems Review of Systems: All systems reviewed & are unremarkable except as noted in HPI and below Constitutional: Constitutional: Denies chills, Denies fever(s), Denies headache(s) and Denies weight loss Eyes: Eyes: Denies change in vision ENT: Denies dizziness, Denies headache(s), Denies neck mass and Denies throat swelling Cardiovascular: Cardiovascular: Denies chest pain, Denies lightheadedness and Denies dyspnea Respiratory: Respiratory: Denies cough, Denies dyspnea and Denies wheezing Gastrointestinal: Gastrointestinal: Denies abdominal pain, Denies change in bowel habits, Denies nausea and Denies vomiting Genitourinary: Genitourinary: Denies hematuria and Denies dysuria Musculoskeletal: Musculoskeletal: Reports as per HPI Integumentary/Breasts: Skin/Breast: Reports as per HPI Neurologic: Denies dizziness and Denies headache(s) Allergic/Immunologic: Allergic/Immunologic: Denies throat swelling and Denies wheezing PMFSH Past Medical History Medical History Claustrophobia Diverticulitis 2020, 2022 Essential hypertension GERD (gastroesophageal reflux disease) Hypertriglyceridemia Obesity (BMI 30-39.9) Surgical History Surgical History History of Achilles tendon repair History of laparoscopic cholecystectomy (04/2017) Status post cystoscopy with ureteral stent placement Left 08/2013, right 01/2018; Dr. Gregorio Family History Family History Mother Carcinoma of colon With metastases to the brain Father CHF (congestive heart failure) Dementia Sibling Hypothyroidism Other Hypertension Social History Social History Social History: Patient was for 45 years but has been since 2019. Her of leukemia. She is a lifelong nonsmoker intense not drink any significant amount of alcohol. 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 She has 2 daughters who she does admit as her surrogate decision makers. Code status: Full code Smoking status: Never smoker Alcohol intake: never Substance use: never Lack of Transportation: No Lack of Food: Never True Current Housing: I Have Housing Concerned About Future Housing: No Difficulty Paying Gas/Electric Bills: No Difficulty Paying for Meds: No Currently Unemployed: No Education: Associate Degree Difficulty w/ Childcare or Family Care: No Living arrangements: alone Spiritual care concerns: No Meds Home Medications and Allergies Home Medications Medication Instructions Recorded Confirmed Type fenofibrate 160 mg tablet 160 mg PO DAILY 06/29/21 09/07/22 History lisinopril 20 1 tablet PO DAILY 06/29/21 09/07/22 History mg-hydrochlorothiazide 12.5 mg tablet omeprazole 40 mg capsule,delayed 40 mg PO DAILY 06/29/21 09/07/22 History release calcium citrate 315 mg 2 tablet PO DAILY 08/26/22 09/07/22 History calcium-vitamin D3 6.25 mcg (250 unit) tablet Allergies Allergy/AdvReac Type Severity Reaction Status Date / Time telithromycin Allergy Intermediate Palpitation Verified 09/07/22 06:23 s Vital Signs Vital Signs - 24 hr 09/07/22 06:08 Temperature 36.6 C Pulse Rate 90 Respiratory Rate 16 Blood Pressure 138/80 Pulse Oximetry 96 Oxygen Delivery Room Air Exam Const: General: no acute distress and alert Orientation/consciousness: patient oriented x3 HENMT: Head: normocephalic and atraumatic Ears: hearing grossly normal bilat
--- NOTE | 2022-09-07 07:36 | WPDURCON ---
Assessment and Plan Assessment and plan (1) Diverticulitis of large intestine with perforation and abscess: Code(s): K57.20 - Diverticulitis of large intestine with perforation and abscess without bleeding Status: Acute Assessment and Plan: Cystoscopy, bilateral ureteral catheterization Urology Consult Note HPI Date Seen: 09/07/22 Requesting Physician: Xavier Lombardo DO Primary Care Provider: Michael Mehta, MD Consult Narrative Narrative: Smiley Parsons is a 66 year old female, who is known to me from prior kidney and ureteral stones, now scheduled for robotic assisted colectomy because of diverticulitis with diverticular abscess. We have been asked to place preoperative ureteral catheters. She is aware the risk including, but not limited to, hematuria, ureteral injury with need for additional procedures. Review of Systems Cardiovascular: Cardiovascular: Denies chest pain, Denies lightheadedness, Denies palpitations and Denies dyspnea Respiratory: Respiratory: Denies dyspnea Gastrointestinal: Gastrointestinal: Denies diarrhea, Denies nausea and Denies vomiting Genitourinary: Genitourinary: Denies hematuria and Denies dysuria Endocrine: Endocrine: Denies palpitations PMFSH Past Medical History Medical History Claustrophobia Diverticulitis 2020, 2022 Essential hypertension GERD (gastroesophageal reflux disease) Hypertriglyceridemia Obesity (BMI 30-39.9) Surgical History Surgical History History of Achilles tendon repair History of laparoscopic cholecystectomy (04/2017) Status post cystoscopy with ureteral stent placement Left 08/2013, right 01/2018; Dr. Gregorio Family History Family History Mother Carcinoma of colon With metastases to the brain Father CHF (congestive heart failure) Dementia Sibling Hypothyroidism Other Hypertension Social History Social History Social History: Patient was for 45 years but has been since 2019. Her of leukemia. She is a lifelong nonsmoker intense not drink any significant amount of alcohol. 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 She has 2 daughters who she does admit as her surrogate decision makers. Code status: Full code Smoking status: Never smoker Alcohol intake: never Substance use: never Lack of Transportation: No Lack of Food: Never True Current Housing: I Have Housing Concerned About Future Housing: No Difficulty Paying Gas/Electric Bills: No Difficulty Paying for Meds: No Currently Unemployed: No Education: Associate Degree Difficulty w/ Childcare or Family Care: No Living arrangements: alone Spiritual care concerns: No Meds Home Medications and Allergies Home Medications Medication Instructions Recorded Confirmed Type fenofibrate 160 mg tablet 160 mg PO DAILY 06/29/21 09/07/22 History lisinopril 20 1 tablet PO DAILY 06/29/21 09/07/22 History mg-hydrochlorothiazide 12.5 mg tablet omeprazole 40 mg capsule,delayed 40 mg PO DAILY 06/29/21 09/07/22 History release calcium citrate 315 mg 2 tablet PO DAILY 08/26/22 09/07/22 History calcium-vitamin D3 6.25 mcg (250 unit) tablet Allergies Allergy/AdvReac Type Severity Reaction Status Date / Time telithromycin Allergy Intermediate Palpitation Verified 09/07/22 06:23 s Vital Signs Vital Signs - 24 hr 09/07/22 06:08 Temperature 98 F Pulse Rate 90 Respiratory Rate 16 Blood Pressure 138/80 Pulse Oximetry 96 Oxygen Delivery Room Air Exam Const: General: no acute distress Resp: Effort & Inspection: normal respiratory effort GI: Inspection: non-distended GI Palp: No abdominal tenderness and No Guarding due to palpation
--- NOTE | 2022-09-07 07:37 | WPDHPUPDATE1 ---
History and Physical Update Update Date/Time: 09/07/22 07:37 History and Physical has been reviewed, including an updated exam of the patient. There are NO changes in the patient's condition. Risks, benefits, and alternatives have been discussed and questions answered. Patient agrees to proceed with procedure.
[2022-09-07] MEDS: ceFAZolin 2 GM/D5W 50 ML 2 GM/50 ML BAG IVPB (07:45)
[2022-09-07] MEDS: metroNIDAZOLE 500 MG/ISO 100ML 500 MG/100 ML BAG 100 MG IVPB (08:06)
--- NOTE | 2022-09-07 08:16 | W.PM.PROC2 ---
Procedure Note - Detailed Date of Procedure 09/07/22 Pre-op Diagnosis Sigmoid Diverticulitis with Abscess Post-op Diagnosis Same Procedure Performed Cystoscopy with bilateral ureteral catheterization Surgeon Alcides Gregorio MD Anesthesia General Description of Procedure The patient was brought to the operative suite where she was prepped and draped in a routine sterile fashion while in a dorsal lithotomy position after the uneventful induction of a general anesthetic. Cystoscopy was undertaken with a 21F rigid cystoscope. The bladder neck and urethra were endoscopically normal. The bladder itself was endoscopically normal without foreign body or neoplasm. The bladder mucosa was without hyperemia. There was a single orthotopic ureteral orifice bilaterally with clear efflux of urine. 5F whistle-tip catheters were place in each ureter and advanced to the kidneys without difficulty. An 18F Ramos catheter was placed and the ureteral catheters were fixed to the Ramos catheter with clips. The patient tolerated this aspect of the procedure well.
[2022-09-07] MEDS: BUPIVACAINE/EPINEPHRINE 0.5% 50 ML VIAL 30 ML INFILTRATE (09:25)
--- NOTE | 2022-09-07 10:00 | SUR.OPER ---
patient maintains positioning. u/a bag draining some yellow urine and greenish blue urine small amount. no air in bag.
--- NOTE | 2022-09-07 10:33 | SUR.OPER ---
mandujano with 25ml of green urine/no air in bag.
[2022-09-07] MEDS: ceFAZolin SODIUM 1 GM VIAL 2 GM IV PUSH (11:43)
--- NOTE | 2022-09-07 11:49 | SUR.OPER ---
patient position maintained/mandujano draining green in bag/no air
[2022-09-07] MEDS: INDOCYANINE GREEN 25 MG VIAL WITH DILUENT XX (12:35)
--- NOTE | 2022-09-07 12:43 | W.PM.PROC2 ---
Procedure Note - Detailed Date of Procedure 09/07/22 Pre-op Diagnosis Sigmoid Diverticulitis with Abscess Post-op Diagnosis Same Procedure Performed Laparoscopic sigmoid colectomy with colorectal anastomosis, da Halima assisted Surgeon Xavier Lombardo DO Hand Coke Drawer Michael Neely MD Anesthesia General and Local (Exparel) Indications This is a 66-year-old woman who presented with a prior history of diverticulitis with abscess. She was recently hospitalized and had to have a percutaneous drain placed for a low pelvic abscess. The drain was eventually able to be removed in the office. The patient wished to proceed with sigmoid colon resection to prevent recurrent episodes of diverticulitis. Discussions were made with the patient about treatment options and decision was made to proceed with robotic assisted laparoscopic sigmoid colectomy. Since the patient had a low pelvic abscess, I also arranged for preoperative ureteral stent placement by Urology. Findings After undergoing preoperative ureteral stent placement, I then also injected 1.5 mL of ICG up the left ureter. This helped to identify the left ureter and preserve it in its location. Upon inspecting the abdomen laparoscopically, there were still some pelvic adhesions these appear to be easy to take down with careful blunt dissection and sharp dissection with scissors with electrocautery. After carefully mobilizing the sigmoid colon, I then resected the sigmoid colon and chose a 28 mm EEA stapler for anastomosis. After performing the anastomosis, then performed a leak check and there was no evidence of air bubbles leaking from the anastomosis. I also used indocyanine green to assess vascular perfusion to the anastomosis which appeared to be well vascularized. The sigmoid colon was removed and sent to the lab for pathology. Dr. Neely assisted with the surgery and helped to advanced the anvil into the abdominal cavity and also assisted with the colorectal anastomosis. He also performed proctoscopy after the anastomosis to assess for any signs of anastomotic leak. Description of Procedure Procedure as well as risks, benefits, and alternatives were discussed with the patient. Written consent was obtained and placed in chart prior to procedure. Patient was brought back to surgical suite. She was placed supine on operating table. Time-out was done to confirm patient and procedure. She was then intubated by the anesthesia department. She was then repositioned into a modified lithotomy position. Her rectal area was prepped and draped in sterile fashion using Betadine prep and her abdomen was prepped and draped in sterile fashion using chlorhexidine prep. A 8 mm incision was made in the right upper quadrant and a 5 mm Optiview trocar was advanced through the abdominal layers under direct visualization. Once inside the abdominal cavity, carbon dioxide insufflation was used to create a pneumoperitoneum. Camera was inserted and her abdomen was inspected laparoscopically. No immediate abnormalities were identified. The patient was placed in steep Trendelenburg position. A 12 mm incision was made in the right lower quadrant about 2 cm medial to the ASIS, and a 12 mm trocar was inserted under direct visualization. Three more 8 mm incisions were placed and 8 mm ports were placed under direct visualization on an oblique angle going up towards the left upper quadrant. Exparel was infiltrated laterally the abdominal sevilla on each side to perform a transversus abdominis block bilaterally. A careful thorough examination of the abdominal cavity was performed. The omentum was reflected cephalad over the stomach. The cecum and small bowel were reflected out of the pelvis. The robotic arms were then brought up to the patient's bedside in secured to the ports. The robotic camera and instruments were then inserted and then I moved over to the robotic console and took control of the camera and instruments. After careful
[2022-09-07] MEDS: ONDANSETRON INJ 4 MG/2 ML VIAL IV PUSH (13:55)
[2022-09-07] MEDS: fentaNYL CITRATE INJ (*CRX) 100 MCG/2 ML VIAL 25 MCG IV PUSH ×2 (14:18→14:22)
[2022-09-07] MEDS: LACTATED RINGERS 1,000 ML 100 ML IV CONT (15:36)
[2022-09-07] MEDS: ceFAZolin 1 GM/NS 50 ML 1 GM/50 ML BAG IVPB ×2 (15:37→22:13)
--- NOTE | 2022-09-07 16:08 | ADMGEN ---
This patient, Smiley Parsons, was admitted to 3 [facility] Surg Room 320-01 at 1500. Patient/family oriented to hospital policies and general routines including ID bracelet, bed and alarms, visiting hours, pain management, procedures, bathroom and other care routines, personal items, smoking policy, room service/diet, and visiting hours. Information on how to activate the Rapid Response Team has been discussed. Patient/Family are encouraged to report perceived risks to care and to ask questions if they do not understand what they are told or what they should do.
[2022-09-07] MEDS: PANTOPRAZOLE 40 MG TABLET PO (18:45)
[2022-09-07] MEDS: MAG HYDROX/AL HYDROX/SIMETH 30 ML UDC PO (18:45)
[2022-09-07] MEDS: FAMOTIDINE 20 MG TABLET PO (21:32)
[2022-09-07] MEDS: oxyCODONE HCL (*CRX) 5 MG TAB IR PO (21:49)
[2022-09-08] MEDS: LACTATED RINGERS 1,000 ML 100 ML IV CONT (02:48)
[2022-09-08] MEDS: ACETAMINOPHEN 500 MG TABLET 1000 MG PO ×4 (05:46→23:46)
[2022-09-08 06:00] VITALS: BP 106/61; PULSE 70; RESP 18; TEMP 36.6; O2SAT 95
[2022-09-08 07:16] LABS: Basophils Absolute Auto 0.1 K/mm3 (0.0-0.1); Basophils Percent Auto 0.6 % (0.2-1.2); Eosinophils Absolute Auto 0.1 K/mm3 (0-0.3); Hematocrit 33.3 % (37.0-47.0); Hemoglobin 10.6 g/dL (12.0-15.0); Immature Granulocyte Absolute 0.02 K/mm3 (0.00-0.031); Immature Granulocyte Percent A 0.2 % (0-0.5); Lymphocytes Absolute Auto 1.24 K/mm3 (0.9-3.2); Lymphocytes Percent Auto 14.9 % (18.3-44.2); Mean Corpuscular HGB Conc 31.8 g/dl (32-36); Mean Corpuscular Hemoglobin 27.9 pg (26-34); Mean Corpuscular Volume 87.6 fl (80-100); Mean Platelet Volume 10.1 fl (7.4-10.4); Monocytes Absolute Auto 0.4 K/mm3 (0.1-0.6); Monocytes Percent Auto 4.7 % (2.6-8.5); Neutrophils Absolute Auto 6.5 K/mm3 (1.3-6.7); Neutrophils Percent Auto 78.6 % (45.5-73.1); Platelet Count Result 222 k/mm3 (150-375); Red Cell Distribution Width 15.2 % (11.5-14.5); White Blood Count 8.3 K/mm3 (4.5-10.0)
[2022-09-08 07:37] LABS: Anion Gap 7 mmol/L (8-16); Blood Urea Nitrogen 16 mg/dL (7-17); Carbon Dioxide 23 mmol/L (22-30); Chloride 104 mmol/L (98-107); Estimated CRCL calculation 57 ml/min; Estimated Glomerular Filt Rate > 60; Glucose 90 mg/dL (65-110); Potassium 3.4 mmol/L (3.4-5.0); Sodium 134 mmol/L (137-145)
[2022-09-08] MEDS: ENOXAPARIN 40 MG/0.4 ML SYRINGE SUB-Q (09:08)
[2022-09-08] MEDS: FAMOTIDINE 20 MG TABLET PO ×2 (09:08→20:29)
[2022-09-08] MEDS: oxyCODONE HCL (*CRX) 5 MG TAB IR PO ×2 (09:27→13:47)
--- NOTE | 2022-09-08 10:28 | PM.PNGS ---
Progress Note: A&P Assessment and Plan (1) Diverticulitis of large intestine with perforation and abscess: Code(s): K57.20 - Diverticulitis of large intestine with perforation and abscess without bleeding Status: Acute Assessment and Plan: Doing well on POD#1. Advance diet as tolerated. Increase activity. Possibly home tomorrow morning if improving. Subjective Subjective Date/Time Seen: 09/08/22 10:28 Interval history: Pain controlled. Bowels moving. Tolerating clears. No nausea/vomiting. Exam GI: Inspection: non-distended and incision (intact with glue) GI Palp: Yes Soft to palpation, Yes Tenderness to palpation present (GI) (incisional) and No Guarding due to palpation present (GI) Objective Data Vital Signs Vital Signs: Vital Signs - 24 hr 09/07/22 12:50 09/07/22 13:05 09/07/22 13:20 Temperature 36.2 C L Pulse Rate 77 82 85 Respiratory Rate 10 L 12 16 Blood Pressure 109/66 123/75 125/78 Pulse Oximetry 100 100 100 Oxygen Delivery Simple Face Mask Simple Face Mask Simple Face Mask Oxygen Flow Rate 6 6 6 09/07/22 13:35 09/07/22 13:50 09/07/22 14:05 Temperature Pulse Rate 84 84 81 Respiratory Rate 20 18 18 Blood Pressure 111/86 125/74 124/74 Pulse Oximetry 100 97 98 Oxygen Delivery Room Air Room Air Room Air Oxygen Flow Rate 09/07/22 14:20 09/07/22 14:28 09/07/22 16:07 Temperature Pulse Rate 83 74 Respiratory Rate 16 16 Blood Pressure 121/73 120/76 Pulse Oximetry 98 93 Oxygen Delivery Room Air Room Air Room Air Oxygen Flow Rate 09/07/22 15:00 09/07/22 15:15 09/07/22 16:15 Temperature 37.6 C H 36.6 C 36.7 C Pulse Rate 77 83 77 Respiratory Rate 16 16 16 Blood Pressure 126/64 116/71 117/64 Pulse Oximetry 100 99 99 Oxygen Delivery Oxygen Flow Rate 09/07/22 18:10 09/07/22 19:46 09/07/22 22:00 Temperature 37.3 C Pulse Rate 83 Respiratory Rate 18 Blood Pressure 114/67 Pulse Oximetry 98 Oxygen Delivery Room Air Room Air Oxygen Flow Rate 09/08/22 06:00 03/09/23 09:05 Temperature 36.6 C Pulse Rate 70 Respiratory Rate 18 Blood Pressure 106/61 Pulse Oximetry 95 Oxygen Delivery Room Air Oxygen Flow Rate Intake/Output Intake/Output: Intake & Output 09/05/22 09/06/22 09/07/22 09/08/22 23:59 23:59 23:59 23:59 Intake Total 1440 1120 Output Total 130 625 Balance 1310 495 Meds/Results Medications: Active Medications Generic Name Dose Route Start Last Admin Trade Name Freq PRN Reason Stop Dose Admin Acetaminophen 1,000 mg 09/07/22 18:00 09/08/22 05:46 Acetaminophen 500 Mg Tablet PO 1,000 mg Q6HR PO Administration Enoxaparin Sodium 40 mg 09/08/22 09:00 09/08/22 09:08 Enoxaparin 40 Mg/0.4 Ml Syringe SUB-Q 40 mg DAILY PO Administration Famotidine 20 mg 09/07/22 21:00 09/08/22 09:08 Famotidine 20 Mg Tablet PO 20 mg Q12HR PO Administration Hydromorphone HCl 1 mg 09/07/22 14:30 Hydromorphone Hcl Inj (*Crx) 1 Mg/Ml Syr IV PUSH Q2H PRN Pain Rated 7-10 Hydromorphone HCl 0.5 mg 09/07/22 14:30 Hydromorphone Hcl Inj (*Crx) 1 Mg/Ml Syr IV PUSH Q2H PRN Pain Rated 4-6 Ondansetron HCl 4 mg 09/07/22 14:30 Ondansetron Inj 4 Mg/2 Ml Vial IV PUSH Q4H PRN Nausea And Vomiting Oxycodone HCl 5 mg 09/07/22 14:30 09/08/22 09:27 Oxycodone Hcl (*Crx) 5 Mg Tab Ir PO 5 mg Q4H PRN Administration Pain Rated 4-6 Oxycodone HCl 10 mg 09/07/22 14:30 Oxycodone Hcl (*Crx) 5 Mg Tab Ir PO Q4H PRN Pain Rated 7-10 Labs Labs: Laboratory Results - last 24 hr 09/08/22 09/08/22 06:51 06:51 WBC 8.3 RBC 3.80 L Hgb 10.6 L Hct 33.3 L MCV 87.6 MCH 27.9 MCHC 31.8 L RDW 15.2 H Plt Count 222 MPV 10.1 Immature Gran % (Auto) 0.2 Neut % (Auto) 78.6 H Lymph % (Auto) 14.9 L [place] % (Auto) 4.7 Eos % (Auto) 1.0 Baso % (Auto) 0.6 Lymph # (Auto) 1.24 [place] # (Auto) 0.4
--- NOTE | 2022-09-08 12:31 | WPDANESPN ---
Anes - Prog Note Post-Op Date/Time: 09/08/22 12:31 Vital Signs: Last Vital Signs Temp 36.6 C 09/08/22 06:00 Pulse 70 09/08/22 06:00 Resp 18 09/08/22 06:00 BP 106/61 09/08/22 06:00 Pulse Ox 95 09/08/22 06:00 O2 Del Method Room Air 09/08/22 09:05 O2 Flow Rate 6 09/07/22 13:20 Pain Score (VAS): 3 I/O: Intake & Output 09/07/22 09/08/22 09/08/22 23:59 07:59 15:59 Intake Total 490 1000 120 Output Total 100 425 200 Balance 390 575 -80 Laboratory Tests 09/08/22 06:51 09/08/22 06:51 09/08/22 09/08/22 06:51 06:51 WBC 8.3 RBC 3.80 L Hgb 10.6 L Hct 33.3 L MCV 87.6 MCH 27.9 MCHC 31.8 L RDW 15.2 H Plt Count 222 MPV 10.1 Immature Gran % (Auto) 0.2 Neut % (Auto) 78.6 H Lymph % (Auto) 14.9 L [place] % (Auto) 4.7 Eos % (Auto) 1.0 Baso % (Auto) 0.6 Lymph # (Auto) 1.24 [place] # (Auto) 0.4 Eos # (Auto) 0.1 Baso # (Auto) 0.1 Abs Immat Gran (auto) 0.02 Absolute Neuts (auto) 6.5 Absolute Nucleated RBC 0.0 Nucleated RBC % 0.0 Sodium 134 L Potassium 3.4 Chloride 104 Carbon Dioxide 23 Anion Gap 7 L BUN 16 Creatinine 0.90 Estim Creat Clear Calc 57 Estimated GFR > 60 Glucose 90 Calcium 8.0 L Patient Feedback: Patient satisfied with anesthetic care.
[2022-09-08 14:00] VITALS: BP 106/54; PULSE 75; RESP 16; TEMP 36.6; O2SAT 93
--- NOTE | 2022-09-08 14:31 | PCCCNOTE ---
On 09/08/22, the student, [Ruibna Christianson], provided care and completed [facility] documentation on this patient. I have reviewed the student's documentation and agree with the findings.
[2022-09-08 22:00] VITALS: BP 123/67; PULSE 83; RESP 18; TEMP 36.2; O2SAT 95
[2022-09-09] MEDS: ACETAMINOPHEN 500 MG TABLET 1000 MG PO (05:40)
[2022-09-09 06:00] VITALS: BP 145/75; PULSE 81; RESP 14; TEMP 36.2; O2SAT 95
[2022-09-09 06:54] LABS: Hematocrit 36.4 % (37.0-47.0); Hemoglobin 11.6 g/dL (12.0-15.0); Mean Corpuscular HGB Conc 31.9 g/dl (32-36); Mean Corpuscular Hemoglobin 27.8 pg (26-34); Mean Corpuscular Volume 87.1 fl (80-100); Mean Platelet Volume 9.8 fl (7.4-10.4); Platelet Count Result 254 k/mm3 (150-375); Red Blood Count 4.18 M/mm3 (4.2-5.4); Red Cell Distribution Width 15.3 % (11.5-14.5); White Blood Count 7.2 K/mm3 (4.5-10.0)
[2022-09-09 07:30] LABS: Anion Gap 5 mmol/L (8-16); Blood Urea Nitrogen 10 mg/dL (7-17); Calcium 8.8 mg/dL (8.4-10.2); Carbon Dioxide 28 mmol/L (22-30); Chloride 104 mmol/L (98-107); Estimated CRCL calculation 83 ml/min; Estimated Glomerular Filt Rate > 60; Glucose 86 mg/dL (65-110); Potassium 3.2 mmol/L (3.4-5.0); Sodium 137 mmol/L (137-145)
--- NOTE | 2022-09-09 08:43 | PM.DS ---
DS: Admitting Diagnosis Discharge Date 09/09/22 Admitting Diagnosis Diverticulitis with abscess DS: Discharge Diagnosis Discharge Diagnosis (1) Diverticulitis of large intestine with perforation and abscess: Code(s): K57.20 - Diverticulitis of large intestine with perforation and abscess without bleeding Status: Acute (2) Essential hypertension: Code(s): I10 - Essential (primary) hypertension Status: Acute DS: Summary Hospital Course Reason for hospitalization: Diverticulitis Hospital Course: 66 yo woman underwent laparoscopic sigmoid colectomy with colorectal anastomosis, da Halima assisted on 09/07/22 and was admitted postoperatively. She was started on a clear liquid diet and advanced as tolerated. On POD#1 her bowels were already moving. Her diet was advanced to a soft regular diet as tolerated. She remained hemodynamically stable. On POD#2 she was tolerating her regular diet. Her pain was well controlled. Pathology showed evidence of diverticulitis. She was discharged on 09/09/22. Status at Discharge Functional status at discharge: independent ambulation Overall status at discharge: patient is progressing back to baseline Time Spent with Patient Time attestation: Total time spent providing and/or coordinating discharge services: Time spent: Less than 30 minutes Exam Resp: Effort & Inspection: normal respiratory effort Auscultation: clear to auscultation bilaterally Cardio: Rate: regular rate Rhythm: regular rhythm Heart sounds: S1 normal heart sound present and S2 normal heart sound present GI: Inspection: incision (intact with glue) GI Palp: Yes Soft to palpation, No Tenderness to palpation present (GI) and No Guarding due to palpation present (GI) Auscultation: normal bowel sounds DS: Data Data Completed and Pending Completed studies during hospitalization: Pending at discharge 09/07/22 12:12 Surgical [PTH] Routine Labs on day of discharge: Labs from last 24 hours 09/09/22 09/09/22 06:26 06:26 WBC 7.2 RBC 4.18 L Hgb 11.6 L Hct 36.4 L MCV 87.1 MCH 27.8 MCHC 31.9 L RDW 15.3 H Plt Count 254 MPV 9.8 Sodium 137 Potassium 3.2 L Chloride 104 Carbon Dioxide 28 Anion Gap 5 L BUN 10 D Creatinine 0.60 L Estim Creat Clear Calc 83 Estimated GFR > 60 Glucose 86 Calcium 8.8 Discharge Plan Discharge Attending physician on discharge: Xavier Lombardo Consulting providers: Jcarlos Forman Discharging Clinician: Xavier Lombardo Patient Disposition: Home, Self-Care Activity: may shower and other - see discharge instructions Diet: low fiber Wound Care Instructions: follow printed instructions Discharge Instructions: No lifting >10 lbs for [address] in 2 days Continue soft low fiber diet for 1 more week Call office for increasing pain, fevers, or problems with incisions. Patient Instructions: Antibiotic Form Stand Alone Forms: General Discharge Information Follow-up/Referrals: Xavier Lombardo, [Physician] - Keep Reg. Scheduled Appt. Discharge Medications: New oxycodone 5 mg tablet 5 mg PO Q4H PRN (Reason: pain) Qty: 20 0RF Continued lisinopril-hydrochlorothiazide 20-12.5 mg tablet 1 tablet PO DAILY omeprazole 40 mg capsule,delayed release(DR/EC) 40 mg PO DAILY fenofibrate 160 mg tablet 160 mg PO DAILY calcium citrate-vitamin D3 315 mg-6.25 mcg (250 unit) Tablet 2 tablet PO DAILY Date of admission: 09/07/22 14:30 Primary Care Provider: DanielMichael Admitting Provider: Xavier Lombardo Attending physician on admission: Xavier Lombardo Condition: Improved
[2022-09-09] MEDS: ENOXAPARIN 40 MG/0.4 ML SYRINGE SUB-Q (10:01)
--- NOTE | 2022-09-09 12:10 | PC.NURSE ---
Pt is an A&O4 female who is post op day 2. Pt has had no complaints of pain and states she is feeling a little better. Pt has participated and contributed in plan of care with me today. Pt reports having frequent trips to the bathroom. Pt will be discharging home. Daughter is at bedside. Will continue to monitor pt.
--- NOTE | 2022-09-09 14:08 | PCCCNOTE ---
On 09/09/22, the student, [Rubina Christianson], provided care and completed [facility] documentation on this patient. I have reviewed the student's documentation and agree with the findings.
== END 2022-09-09 12:40 | disposition home or self-care (01) | DRG 331 ==
LOC: ANH3MEDSUR 14:33
PROVIDERS: Urology; Admitting Provider Surgery; PCP Family Medicine Sports Medicine; Visit Provider Surgery
PROC: 0DBN4ZZ Excision of Sigmoid Colon, Percutaneous Endoscopic Approach (ICD-10-PCS; principal; 2022-09-07 07:30)
DX: K57.20 Diverticulitis of large intestine with perforation and abscess without bleeding (principal); I10 Essential (primary) hypertension; K21.9 Gastro-esophageal reflux disease without esophagitis; E78.1 Pure hyperglyceridemia; E66.9 Obesity, unspecified; Z68.36 Body mass index [BMI] 36.0-36.9, adult; Z90.49 Acquired absence of other specified parts of digestive tract; Z87.442 Personal history of urinary calculi
CPT/HCPCS: 36415; 80048; 85025; 85027; 88307; A9270; C1729; C1758; C1769; C9290; J0690; J1100; J1170; J1200; J1650; J1885; J2250; J2405; J2704; J2710; J3010; J7030; J7120

== ENCOUNTER → 2023-01-12 12:15 | Outpatient (CLI) | payer MEDICARE, SELFPAY ==
--- NOTE | ~2023-01-12 | DEXA_ITS ---
Bone Density Report Name: WINSTON DELGADO Age: 67 Sex: Female Ethnicity: White Date of : 1955 Indication: osteopenia; postmenopausal Referring Provider: ADRIANNA MCLAUGHLIN Study: Bone densitometry was performed. Exam Date: January 12, 2023 Accession number: [id number] Bone Density: Region BMD T-score Z-score Classification AP Spine (L1-L4) 1.030 -0.2 1.9 Normal Femoral Neck (Left) 0.632 -2.0 -0.2 Osteopenia Total Hip (Left) 0.837 -0.9 0.6 Normal Femoral Neck (Right) 0.617 -2.1 -0.3 Osteopenia Total Hip (Right) 0.767 -1.4 0.0 Osteopenia Total Hip Mean 0.802 -1.2 0.3 Osteopenia World Health Organization criteria for BMD impression classify patients as: Normal (T-score at or above -1.0), Osteopenia (T-score between -1.0 and -2.5), or Osteoporosis (T-score at or below -2.5). 10-year Fracture Risk(1): Major Osteoporotic Fracture 11% Hip Fracture 1.9% Reported Risk Factors: [place] (), Neck BMD=0.617, BMI=35.3 (1) FRAX(R) Version 3.08. Fracture probability calculated for an untreated patient. Fracture probability may be lower if the patient has received treatment. Previous Exams: Region Exam Age BMD T-score BMD Change BMD Change Date g/cm2 vs Baseline vs Previous AP Spine(L1-L4) 01/12/2023 67 1.030 -0.2 -0.192 0.033* 05/22/2020 64 0.997 -0.5 -0.225 0.005 06/20/2017 61 0.991 -0.5 -0.231 0.000 04/13/2015 59 0.991 -0.5 -0.231 -0.070* 01/11/2013 57 1.061 0.1 -0.161 -0.017 01/17/2011 55 1.079 0.3 -0.143 -0.013 09/28/2007 51 1.092 0.4 -0.130 -0.130 02/27/2004 48 1.222 1.6 Total Hip(Left) 01/12/2023 67 0.837 -0.9 -0.159 0.011 05/22/2020 64 0.827 -0.9 -0.169 0.012 06/20/2017 61 0.814 -1.0 -0.182 0.016 04/13/2015 59 0.798 -1.2 -0.198 -0.047* 01/11/2013 57 0.845 -0.8 -0.151 -0.040* 01/17/2011 55 0.885 -0.5 -0.111 -0.004 09/28/2007 51 0.889 -0.4 -0.107 -0.107 02/27/2004 48 0.996 0.4 Total Hip(Right) 01/12/2023 67 0.767 -1.4 -0.223 -0.009 05/22/2020 64 0.777 -1.4 -0.214 -0.037 06/20/2017 61 0.814 -1.0 -0.177 -0.015 04/13/2015 59 0.829 -0.9 -0.161 -0.056* 01/11/2013 57 0.886 -0.5 -0.105 -0.013 01/17/2011 55 0.899 -0.4 -0.092 -0.025 09/28/2007 51 0.924 -0.1 -0.067 -
--- NOTE | ~2023-01-12 | MM_ITS ---
EXAMINATION: MM screening naun BI w ravi HISTORY: Screening mammogram TECHNIQUE: Craniocaudal and mediolateral oblique 3-D tomosynthesis images were obtained and synthetic 2-D images were generated. CAD analysis was submitted and interpreted. COMPARISON: 05/22/2020, 09/18/2018, 06/20/2017 bilateral screening mammogram examinations BREAST PARENCHYMAL COMPOSITION: The breasts are almost entirely fatty. FINDINGS: Biopsy markers on the left; history of prior benign left breast biopsies. Stable small low- density circumscribed opacities in the posterior upper outer right breast consistent with benign intr amammary lymph nodes. There is no evidence of suspicious mass, calcification, or architectural distor tion to suggest malignancy in either breast. There has been no suspicious interval change. IMPRESSION: 1. No mammographic evidence of malignancy. 2. Recommend routine screening mammography in one year. BI-RADS Category 2: Benign finding(s). Reviewed, dictated and finalized at location A.
== END ==
PROVIDERS: PCP Family Medicine Sports Medicine
DX: Z12.31 Encounter for screening mammogram for malignant neoplasm of breast (principal); Z13.820 Encounter for screening for osteoporosis; Z78.0 Asymptomatic menopausal state; M85.852 Other specified disorders of bone density and structure, left thigh; M85.851 Other specified disorders of bone density and structure, right thigh
CPT/HCPCS: 77063; 77067; 77080

== ENCOUNTER 2024-02-06 13:49 | Outpatient (CLI) | payer MEDICARE, SELFPAY ==
--- NOTE | ~2024-02-06 | MM_ITS ---
EXAMINATION: MM screening naun BI w ravi HISTORY: Screening TECHNIQUE: Craniocaudal and mediolateral oblique 3-D tomosynthesis images were obtained and synthetic 2-D images were generated. CAD analysis was submitted and interpreted. COMPARISON: Comparison to multiple prior studies sequentially, with oldest reviewed study dated 04/02. BREAST PARENCHYMAL COMPOSITION: Not dense: There are scattered areas of fibroglandular density. FINDINGS: There is no evidence of suspicious mass, calcification, or architectural distortion to sugg est malignancy in either breast. There has been no suspicious interval change. IMPRESSION: 1. No mammographic evidence of malignancy. 2. Recommend routine screening mammography in one year. BI-RADS Category 1: Negative Reviewed, dictated and finalized at location B.
== END 2024-02-06 13:50 ==
PROVIDERS: PCP Family Medicine; Visit Provider Family Medicine
DX: Z12.31 Encounter for screening mammogram for malignant neoplasm of breast (principal)
CPT/HCPCS: 77063; 77067